=== PATIENT | female | born 1955 | race Caucasian/White ===

== ENCOUNTER 2024-07-22 12:14 | Outpatient (REF) | payer MEDICARE, OTHER, SELFPAY ==
--- NOTE | ~2024-07-22 | XR_ITS ---
CLINICAL HISTORY: M25.562 - Pain in left knee AP view of the bilateral knee and additional two views of the left knee Comparison: None Findings: Bones intact. No dislocations. Total knee replacement of the left knee. No joint effusion. No radiopaque foreign body. Mild degenerative change of the right knee. IMPRESSION: No evidence of complication of the left knee prosthesis. Mild degenerative change of the right knee. This document has been electronically signed by: Lalo Sanchez MD on 07/23/2024 13:03:47
--- OUTSIDE RECORDS SUMMARY | 2024-07-22 14:21 | XMS_ITS | Data Portability ---
Author Organization [facility], Main Office Address [address] [facility] [address] [place] [phone] Assessment No assessment recorded. Plan of Treatment Reminders Order Date Submit Date Provider Last Modified By Organization Details Last Modified Time Details Appointments NEW PT 2024 02:30P M Anuj Molina MD Not available Not available Not available Lab magnesium , serum or plasma 2024 025 [place] (Centralized Electronic Ordering - All Locations), Patient Can Go To The Location Of Their Choice, 07/08/2024 14:06:55 BMP, serum or plasma 2024 025 [place] [facility] (Centralized Electronic Ordering - All Locations), Patient Can Go To The Location Of Their Choice, 07/08/2024 14:06:53 urinalysi s, complete 2024 025 [place] [facility] (Centralized Electronic Ordering - All Locations), Patient Can Go To The Location Of Their Choice, 07/08/2024 14:06:52 microalbu min/creat inine, mass ratio, urine 2024 025 [place] [facility] (Centralized Electronic Ordering - All Locations), Patient Can Go To The Location Of Their Choice, 07/08/2024 14:06:54 osmolalit y, urine 2024 025 [place] [facility] (Centralized Electronic Ordering - All Locations), Patient Can Go To The Location Of Their Choice, 07/08/2024 14:06:56 osmolalit y, serum 2024 025 [place] [facility] (Centralized Electronic Ordering - All Locations), Patient Can Go To The Location Of Their Choice, 07/08/2024 14:06:56 unlisted lab - sodium, urine 2024 [email or web address] [facility] (Centralized Electronic Ordering - All Locations), Patient Can Go To The Location Of Their Choice, 07/06/2024 08:59:54 Referral nephrolog ist referral 2024 SANJAY Valdivia MD, [address] [facility] [address], [place], [address], 07/13/2024 14:31:51 Procedures None recorded. Surgeries None recorded. Imaging None recorded. Medication Orders hydrochlo rothiazid e 25 mg tablet 2024 [email or web address] [facility], [address], [place], [address], 07/10/2024 09:40:45 Patient TargetsNo targets recorded. Patient Instructions Encounter Date Encounter Id Patient Instructions Last Modified By Organization Details Last Modified Time 07/05/2024 [id number] Medications (OTC , herbal therapies, supplements) reviewed and reconciled with patient and or caregiver, including potential side effects, drug interactions, instructions, and the consequences of not taking medication. Reviewed potential barriers to medication adherence, such as side effects from medication or cost of medication. [email or web address] Not available 07/05/2024 15:06:23 Reason for Referral [employer] Referral for Hy ponatremia Referring Physician: Logan Cobb, Internal Medicine, Encounter Date: 07/05/2024 Results Created Date Observation Date Name Description Value Unit Range Abnormal Flag Note LastModifiedBy Organization Detail LastModifiedTime 07/06/1907/06/2024 KEIRA EN AUTHO RIZAT ION written authorizatio n Carrington López en Autho rizat ion Recei ladarius. Autho rizat ion recei ladarius from Erwin Botello for Link Reque st on 07-06 Logge d by Raphael Blanton Not Available [facility] ([facility]) [address], [place], [address], 07/13/2024 16:05:56 05/22/20 25 06/01/2024 CT, heart , w/o contr ast, w/ coron jovon calci um score No observ ation record ed. [email or web address] Beard MD [address], [place], [address], 07/08/2024 11:47:35 07/09/19 25 11/25/2023 MAMMO , scree saran, bilat eral No observ ation record ed. [email or web address] Jian Beard MD [address], [place], [address], 07/08/2024 11:43:25 07/09/19 25 08/19/2023 bone densi ty No observ ation record ed. anthony Beard MD [address], [place], [address], 07/08/2024 11:47:35 07/09/19 25 04/26/2022 metha choli ne chall enge* No observ ation record ed. ckokar Not Available 2024 11:47:20 07/09/19 25 04/26/2022 PFT, compl ete No observ ation record ed. [email or web address] Not Available 2024 11:47:35 Result Notes None recorded. Problems Name Problem SNOMED Code Status Onset Date Resolution Date Notes Provider Name and Address Organization Details Recorded Time Hyponatremia 01002807 Active 2024 Baron sims, [facility] 5 14:28:40 Mixed anxiety and depressive disorder 781058306 Active 2024 Logan Cobb PA-C [address], [place], [phone], [facility] 5 15:10:33 Essential hypertension 72015522 Active 2024 Logan Cobb PA-C [address], [place], [phone], [facility] 5 09:40:17 Problem Notes None recorded. Procedures Surgical History Date Name Laterality Status Provider Name and Address Organization Details Recorded Time 11/25/19 Most Recent Mammogram completed Nevin Talley [facility] 07/08/2024 11:43:20 operation on shoulder joint completed [facility] 07/05/2024 14:20:20 arthroplasty of knee completed [facility] 07/05/2024 14:21:10 section completed [facility] 07/05/2024 14:21:30 appendectomy completed [facility] 07/05/2024 14:21:41 release of trigger finger of right hand completed [facility] 07/05/2024 14:22:03 Imaging Results None recorded. Procedure Notes None recorded. Medical Equipment None Reported. Allergies Allergen ID Allergen Name Allergen Category Reaction Reaction Severity Criticality Documentation Date Start Date Code Code System Note Provider Name and Address Organization Details Recorded Time 40132 Product containin g penicilli n (product) medicatio n rash mild low 03/08/2024 72847 8001 SNOMED Lela Hill RN null, [facility] 13:39:27 73072 Keflex medicatio n rash mild low 03/08/2024 93797 7 RxNorm Lela Hill RN null, [facility] 13:39:47 05683 Plaquenil medicatio n rash moderate low 03/08/2024 15559 2 RxNorm Lela Hill RN null, [facility] 13:40:09 34425 Clinoril medicatio n rash mild low 03/08/2024 75881 4 RxSallyrm Lela Hill RN null, [facility] 13:40:28 81810 Bactrim medicatio n rash mild low 03/08/2024 97861 9 RxNoamalia Hill RN null, [facility] 13:40:49 66798 aspirin medicatio n rash mild low 03/08/2024 1191 RxNorm Lela Hill RN null, [facility] 13:47:12 54467 meloxicam medicatio n rash mild low 03/08/2024 23972 RxNoamalia Hill RN null, [facility] 13:47:46 87588 erythromy gianna medicatio n rash mild low 03/08/2024 4053 RxNorm Lela Hill RN null, [facility] 13:48:07 Medications Name Sig Start Date Stop Date Status Note LastModified by Organization Details LastModified Time cyclobenzap rine 10 mg tablet Take 1 tablet 3 times a day by oral route as needed for 10 days. 07/05 completed Not Available Not Available Not Available prednisone 10 mg tablet 5 tabs for 2 days, then 4 tabs for 2 days, then 3 tabs for 2 days, then 2 tabs for 2 days then 1 tab for 2 days. 07/05 completed Not Available Not Available Not Available fluconazole 150 mg tablet TAKE 1 TABLET BY MOUTH NOW. REPEAT IN 72 HOURS 07/05 completed Not Available Not Available Not Available terconazole 0.8 % vaginal cream INSERT 1 APPLICATO RFUL VAGINALLY EVERY DAY FOR 3 DAYS 07/05 completed Not Available Not Available Not Available tramadol 50 mg tablet Take 1 tablet every 8 hours by oral route as needed for 3 days. 2021 active Not Available Not Available Not Avai lable levothyroxi ne 75 mcg tablet Take 1 tablet 6 times a day by oral route. active Not Available Not Available No t Available Celebrex 100 mg capsule Take 1 capsule twice a day by oral route. active Not Available Not Available No t Available Zoloft 50 mg tablet Take 0.5 tablets every day by oral route. active Not Available Not Available No t Available meclizine 25 mg tablet Take 1 tablet 3 times a day by oral route for 30 days. 07/05 completed Not Available Not Available Not Available levothyroxi ne 50 mcg tablet Take by oral route. 07/05 completed Not Available Not Available Not Available prednisone 50 mg tablet TAKE 1 TABLET BY MOUTH DAILY 07/05 completed Not Available Not Available Not Available codeine 10 mg-guaifene sin 100 mg/5 mL oral liquid Take 10 mL every 4 hours by oral route as needed for 7 days. 07/05 completed Not Available Not Available Not Available hydrochloro thiazide 25 mg tablet Take 0.5 tablets every day by oral route. 2024 active Not Available Not Available Not Avai lable Cipro 250 mg tablet Take 1 tablet every 12 hours by oral route for 3 days. 07/05 completed Not Available Not Available Not Available lisinopril 40 mg tablet Take 1 tablet every day by oral route. active Not Available Not Available No t Available oxycodone 5 mg tablet TAKE 1 TABLET BY MOUTH EVERY 6 HOURS NEEDED FOR PAIN 07/05 completed Not Available Not Available Not Available Zetia 10 mg tablet Take 1 tablet every day by oral route. active Not Available Not Available No t Available levothyroxi ne 50 mcg capsule Take 0.5 capsules every day by oral route. 07/05 completed Not Available Not Available Not Available baclofen 5 mg tablet Take 1 tablet 3 times a day by oral route as needed for 10 days. 07/05 completed Not Available Not Available Not Available Vitals Date Recorded Body height Body mass index (BMI) Body weight Heart rate Oxygen saturation Oxygen saturation in Arterial blood by Pulse oximetry Body temperature Systolic blood pressure Diastolic blood pressure Provider Name and Address Organization Details Last Updated DateTime 154.94 cm 33.7 kg/m2 70098.1 4 g 86 /min 97 % 97 % 97.7 [degF] 132 mm[Hg] 79 mm[Hg] Pat Abreu MA [facility] 14:14:22 Social History Question Answer Notes LastModified by Organizat ion Details LastModified Time Tobacco Smoking Status Former Smoker 1979 [employer] [facility] 07/05/2024 14:30:35 What Type Of Diet Are You Following? REGULAR Information not available 07/05/2024 How Many Children Do You Have? 2 Information not available 07/05/2024 What Is Your Current Pack Years? 10packyears Information not available 07/05/2024 At What Age Did You Start Smoking Tobacco? 19 1975 Information not available 07/05/2024 How Much Tobacco Do You Smoke? 0.5 PPD Information not available 07/05/2024 How Many Years Have You Smoked Tobacco? 5 Information not available 07/05/2024 Sex: Female Functional Status Question Answer Note LastModified by Organizat ion Details LastModified Time Are you able to walk? YESWOREST Information not available 07/05/2024 What is your exercise level? Occasional Information not available 07/05/2024 Mental Status None recorded. Family History Relationship Description Onset Age of this Age Resolved Age Notes LastModified by Organization Details LastModified Time Mother Hypertensive disorder Sister , Brothe r Matern al Grandm other [email or web address] Not available 07/05/2024 11:41:15 Mother Disorder of thyroid gland Sister [email or web address] Not available 11:42:26 Mother Hypercholest erolemia Father [email or web address] Not available 11:43:24 Father Obesity 69 k[place]bym[place]one Not avail able 07/05/2024 11:44:09 Father Diabetes mellitus 69 [email or web address] Not available 11:44:37 Paternal Aunt Malignant tumor of breast [email or web address] Not available 11:45:23 Brother Bipolar disorder kcolbymontone Not available 11:45:33 Medical History No medical history recorded. Gynecological History Statement/Question Response Most Recent Mammogram 11/25/2023 Obstetrics History GPAL:G 0 P 0 0 0 0 Immunizations Vaccine Type Date Status Note Provider Nam e and Address Organization Details Recorded Time COVID-19, mRNA, LNP-S, PF, 30 mcg/0.3 mL dose 12/29/2020 completed Not Available [facility] 14:01:25 COVID-19, mRNA, LNP-S, PF, 30 mcg/0.3 mL dose 03/03/2020 completed Not Available [facility] 5 14:01:25 COVID-19, mRNA, LNP-S, PF, 30 mcg/0.3 mL dose 03/24/2020 completed Not Available [facility] 14:01:25 Past Encounters Encounter ID Performer Location Encounter Start Date Encounter Closed Date Diagnosis/Indication Diagnosis SNOMED-CT Code Diagnosis ICD10 Code Diagnosis Note [id number] Micah Maldonado MD Main Office [address] [facility] [place] [id number] 07/05/2024 13:57:30 07/05/2024 15:23:48 Hyponatremia 34802507 E87.1 ? due to HCTZ and/ or sertraline see below - rec cut hctz 25mg in 02/18 = 12.5mg qd, and cont low dose sert for now (25mg qd)Will check BMP, urine, and get renal eval to help r/o siadh last wk had nl cbc, tsh, vit d consider one handful of mixed nuts / day Hypomagnesemia 931225065 E83.42 Essential hypertension 89249380 I10 bp relatively stable, but given low sodium above - rec cut hctz 25mg in 1/2 = 12.5mg qd (see above)cont lis 40mg qd as dir Mixed anxi ety and depressive disorder 694173353 F41.9 F32.A has been on sert 25mg qd x several yrs, no tolerate coming off it entirely - so cont as dir for now Health Concerns Section Related Observation LastModified by Organization Detai ls LastModified Time None Recorded Concern Status LastModified by Organization Details LastModified Time None Recorded Advance Directives Directive None Recorded Payers Encounter Date Sequence Insurance Name Policy Number Policy Cota Covered Member ID Cota Member ID Guarantor Name 07/05/2024 2 FOR LIFE ( - MEDICARE SUPPLEMENT) Lela Hill [id number] Lela Hill 07/05/2024 1 [place]IC[place]: Service Seeking SERVICES Lela Salazar Liz [id number] Lela Hill Notes Date Note Type Note Provider Name and Address Organization Details Recorded Time 07/05/2024 text/html 68-year-old bereket acosta, new patient, presents for evaluation of hyponatremia. Reports feeling lightheaded, fatigued, and experiencing a fuzzy sensation. Most recent sodium was 129 on . She has been on HCTZ, which she stopped after reviewing lab results. Previously on spironolactone, which was discontinued in April when sodium was 130, and creatine went up. HCTZ was started at that time. Sodium has been trending downward since 07/06/23. She has a family history of SIADH (mother). History of hypothyroidism, currently on levothyroxine with recent normal TSH. CBC is normal, chloride is low, and glucose is normal. Logan Cobb PA-C [address] [address], [place], [address], [facility] 07/10/2024 09:43:32 OBGyn Episode No OBEpisode recorded.
== END 2024-07-22 12:15 | disposition home or self-care (01) ==
LOC: HO.HOSX 12:14
PROVIDERS: Visit Provider Physician Assistant
DX: M25.562 Pain in left knee (principal); Z96.652 Presence of left artificial knee joint
CPT/HCPCS: 73562; 99202

== ENCOUNTER 2024-07-22 14:50 | Outpatient (AMB) | payer MEDICARE, OTHER, SELFPAY ==
--- NOTE | 2024-07-22 15:13 | MHC.OFFVIS ---
Vital Signs 07/22/24 15:16 Height 5 ft 2 in Weight 176 lb BMI 32.2 Intake Visit Reasons: [employer]- Left knee stiffness/swelling, h/o TKA 2019 Intake Note: Lela is a 68 year old female who presents as a new patient with complaints of left knee stiffness and swelling. History of TKA in 2020 with Benny Stockton at [facility]. Patient reports having a lot of stiffness and pain. She has constant pain that is located at the medial side of knee. She is unable to bend at her knee, making it difficult for stair use. Finds relief with celebrex. No injury. Allergies aspirin Allergy (Verified 07/22/24 15:17) Rash azithromycin Allergy (Verified 07/22/24 15:20) Rash cephalexin [From Keflex] Allergy (Verified 07/22/24 15:20) Rash hydroxychloroquine [From Plaquenil] Allergy (Verified 07/22/24 15:20) Rash meloxicam Allergy (Verified 07/22/24 15:20) Rash Penicillins Allergy (Verified 07/22/24 15:20) Rash sulfamethoxazole [From Bactrim] Allergy (Verified 07/22/24 15:20) Rash sulindac [From Clinoril] Allergy (Verified 07/22/24 15:20) Rash trimethoprim [From Bactrim] Allergy (Verified 07/22/24 15:20) Rash Medication List - Last Reconciled 07/22/24 by Vicky Fam PA-C celecoxib 100 mg PO BID ezetimibe 10 mg PO DAILY hydrochlorothiazide 25 mg PO DAILY levothyroxine 75 mcg PO DAILY lisinopril 40 mg PO DAILY sertraline mg PO HPI HPI [employer]- Left knee stiffness/swelling, h/o TKA 2019: Details: 68-year-old female presents to the office today for her left knee. She had a left total knee done at [facility] back in 2019. 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 She has tried different medications which were not helpful. She had a synovectomy and also a menisectomy with Dr Arias. She seek a 2nd opinion at [facility] and that was when she decided to proceed with a left total knee arthroplasty. She states prior to her total knee arthroplasty she did have some limited range of motion however this was with extension. She does recall having full flexion. Once she had her total knee she states her range of motion was 0-130 degrees. The 1st 3 years after surgery she was doing quite well however then she noticed worsening stiffness with flexion. Currently she has intermittent swelling along the medial aspect of the knee along with difficulty with stairs or prolonged walking. She takes Celebrex daily which helps with her pain and swelling. She denies any recent injuries and denies fever or chills. [facility] Surgical History (Updated 07/22/24 @ 16:19 by Vicky Fam PA-C) History of total left knee replacement Review of Systems Const All systems reviewed & are unremarkable except as noted in HPI and below Physical Exam Vital Signs: BMI result Body Mass Index 32.2 Const General: cooperative and no acute distress Orientation/consciousness: patient oriented x3 Resp Effort & Inspection: normal respiratory effort and able to speak in complete sentences Cardio Peripheral pulses: Peripheral pulses 2+ throughout Neuro General: patient oriented x3 Extrem Other: Left knee surgical scar well healed. There is no erythema or joint effusion. Range of motion is 0-90 degrees passively and actively. She does have swelling over the pes bursa with significant tenderness to palpation. No ligamentous laxity with varus valgus stress. Anterior and posterior drawer signs are negative. Calf is supple and nontender neurovascularly intact. Results Reviewed Results Reviewed: X-rays of her left knee were obtained in the office today and reviewed by me show intact prosthesis without signs of loosening. Assessment & Plan Assessment & Plan (1) Stiffness of left knee: Code(s): M25.662 - Stiffness of left knee, not elsewhere classified Category: Medical (2) History of total knee arthroplasty: Code(s): Z96.659 - Presence of unspecified artificial knee joint Category: Surgical Plan I had a lengthy discussion with the patient about her condition and explained the prosthesis appears to be intact and there is no evidence of active infection at this time. She may just benefit from physical therapy and aggressive motion. Therapy was ordered today and she will contact a facility closer to her home to schedule an appointment. I explained to the patient over several years of stiffness the muscles and and surrounding structures can contract which could potentially be irreversible therefore I do not feel there is a surgery that will improve her flexion. She does express understanding is not looking to have another surgery. I do recommend she continue with anti-inflammatories, I did prescribe her Voltaren gel to use over the knee. She can see me back in 3 months if she continues to have symptoms otherwise follow up as needed. Orders: Orders XR knee LT 3V Today M25.562 - Pain in left knee PT Evaluation and Treatment Today M25.662 - Stiffness of left knee, not elsewhere classified Medications: New diclofenac sodium 1% apply 4grams to affected area four times a day as needed 4 grams topical QID 100 grams 6RF 30 days Coding Level of Care Code New Pt Level 3 (72923) Complex EM visit Add On G2211 Diagnoses Stiffness of left knee M25.662 History of total knee arthroplasty Z96.659
[2024-07-22 15:16] VITALS: BMI 32.2
== END 2024-07-22 15:51 | disposition home or self-care (01) ==
LOC: HO.HOS 14:50
PROVIDERS: Visit Provider Physician Assistant
DX: M25.662 Stiffness of left knee, not elsewhere classified (principal); Z96.652 Presence of left artificial knee joint
CPT/HCPCS: 99203; G2211

== ENCOUNTER → 2024-07-22 14:54 | Outpatient (BNV) | payer MEDICARE, OTHER, SELFPAY | PROVIDERS: Visit Provider Nuclear Medicine | DX: M25.562 Pain in left knee (principal) | CPT/HCPCS: 73562 ==

== ENCOUNTER 2025-02-15 13:22 | Outpatient (AMB) | payer MEDICARE, OTHER, SELFPAY ==
--- OUTSIDE RECORDS SUMMARY | 2025-02-14 23:59 | XMS_ITS | Continuity of Care Document ---
Author Organization [facility] Address [address] [place] [id number] Support Name Relationship Address Phone ESHTER URIBE Personal Relationship Unknown Unav ailable GERARD NELSON Personal Relationship Unknown Un available LESLIE, MATT Personal Relationship Unknown Unava ilable SIRARD, MATT Personal Relationship Unknown Unava ilable SIRALYSHA, MATT Personal Relationship Unknown Unava ilable SIRALYSHA, MATT Personal Relationship Unknown Unava ilable SIRARD, MATT Personal Relationship Unknown Unava ilable SYDORAK, ESTHER Personal Relationship Unknown Unav ailable PILON, TIFFANY mother Unknown Unavailable SIRARD, MATT Personal Relationship Unknown Unava ilable SIRARD, MATT Personal Relationship Unknown Unava ilable SIRARD, MATT spouse Unknown Unavailable SIRARD, MATT spouse Unknown Unavailable SIRALYSHA, MATT Personal Relationship Unknown Unava ilable PILON, TIFFANY mother Unknown Unavailable SYDORAK, ESTHER Personal Relationship Unknown Unav ailable LESLIE, MATT Personal Relationship Unknown Unava ilable SIRARD, MATT Personal Relationship Unknown Unava ilable SIRARD, MATT Personal Relationship Unknown Unava ilable SIRARD, MATT Personal Relationship Unknown Unava ilable SYDORAK, ESTHER Personal Relationship Unknown Unav ailable SIRARD, MATT Personal Relationship Unknown Unava ilable SIRARD, MATT Personal Relationship Unknown Unava ilable SYDORAK, ESTHER Personal Relationship Unknown Unav ailable SYDORAK, ESTHER Personal Relationship Unknown Unav ailable SYDORAK, ESTHER Personal Relationship Unknown Unav ailable Care Team Providers Care Associate Store Leader Name Role Phone Anuj Molina MD Primary Care Physician [phone] Encounter 02/13/25 - 02/14/[address] [address]- Attending Physician: Not on Staff, Attending MD Referring Physician: Anuj Molina MD Encounter Type: [facility] Allergies, Adverse Reactions, Alerts Substance Criticality Severity Reaction Reaction Severity Status penicillin RASH Active sulfamethoxazole GI Act nu Keflex RASH Active erythromycin base RASH Ac tive aspirin Active Plaquenil Sulfate rash Ac tive Clinoril RASH Active EC Naprosyn RASH Active meloxicam rash Active Immunizations Given and Recorded Vaccine Date Status Refusal Reason Influenza Virus Vaccine (oldterm) 1 12/05/21 Recor ded Influenza Virus Vaccine (oldterm) 2 01/18/08 Given SARS-CoV-2 (COVID-19) mRNA BNT-162b2 vac 12/29/20 Recorded SARS-CoV-2 (COVID-19) mRNA BNT-162b2 vac 03/24/20 Recorded SARS-CoV-2 (COVID-19) mRNA BNT-162b2 vac 03/03/20 Recorded influenza virus vaccine, inactivated 3 12/16/19 Gi daniel influenza virus vaccine, inactivated 11/26/17 Jhonatan rded influenza virus vaccine, inactivated 11/17/16 Jhonatan rded influenza virus vaccine, inactivated 11/01/15 Jhonatan rded influenza virus vaccine, inactivated 11/30/14 Jhonatan rded influenza virus vaccine, inactivated 11/12/14 Give n influenza virus vaccine, inactivated 01/04/14 Give n influenza virus vaccine, inactivated 4 11/17/12 Re corded influenza virus vaccine, inactivated 12/18/10 Give n influenza virus vaccine, inactivated 5 11/28/09 Gi daniel influenza virus vaccine, inactivated 6 11/21/08 Gi daniel influenza virus vaccine, inactivated 10/25/08 Give n tetanus/diphtheria/pertussis, acel(Tdap) 10/22/18 Given tetanus/diphtheria/pertussis, acel(Tdap) 7 07/09/08 Given Influenza Vaccine (oldterm) 01/23/12 Given diphtheria-tetanus toxoids (DT) 07/19/03 Given 1Result Comment: WORK 2Admin Note: SANOFI PASTEUR 3Result Comment: [facility]-[id number] 4Result Comment: [12/31/2012] Flu shot given at [facility] 11/2012 5Admin Note: [facility] 6Admin Note: Given at work 7Admin Note: [employer] employee health Medications CeleBREX 100 mg oral capsule 1 capsule = 100 mg, By Mouth, 2 times a day, PRN for pain, # 60 capsule, 2 Refills, Maintenance, 05/10/24 2:00:00 PM EDT, Capsule, [facility], Partial fill upon patient request if the prescription is for a schedule II opioid drug., 157.5, cm, 05/10/24 13:25:00 EDT, Height, 79.3, kg, 12/16/23 6:34:00 EDT, Dry Weight Start Date: 05/10/24 Status: Ordered Medication Dispense Status: Completed Quantity: 60.0 Unit: capsule Total Allowed Fills: 3 Fills Dispensed: 0 gabapentin 100 mg oral capsule 2, capsule, By Mouth, Daily at bedtime, # 60 capsule, Refills 5, Tot. Refills 5, Maintenance, 12/31/22 4:56:00 AM EST, Route to Pharmacy Electronically, [facility], 157.4, cm, 10/24/22 9:55:00 EDT, Height, 80.9, kg, 12/14/21 14:52:00 EDT, Dry Weight Start Date: 12/31/22 Status: Ordered Medication Dispense Status: Completed Quantity: 60.0 Unit: capsule Total Allowed Fills: 6 Fills Dispensed: 0 hydrochlorothiazide 25 mg oral tablet 25 mg, 1, tablet, By Mouth, Daily, D/C spironolactone, # 90 tablet, Refills 3, Tot. Refills 3, Maintenance, 05/10/24 1:49:00 PM EDT, Route to Pharmacy Electronically, [facility], Partial fill upon patient request if the prescription is for a schedule II opioid drug., 157.5, cm, 05/10/24 13:25:00 EDT, Height, 79.3, kg, 12/16/23 6:34:00 EDT, Dry Weight Start Date: 05/10/24 Status: Ordered Medication Dispense Status: Completed Quantity: 90.0 Unit: tablet Total Allowed Fills: 4 Fills Dispensed: 0 levothyroxine 75 mcg (0.075 mg) oral tablet 1 tablet = 75 mcg, By Mouth, Daily, # 90 tablet, 3 Refills, Maintenance, 05/10/24 1:51:00 PM EDT, Tablet, [facility], Partial fill upon patient request if the prescription is for a schedule II opioid drug., 157.5, cm, 05/10/24 13:25:00 EDT, Height, 79.3, kg, 12/16/23 6:34:00 EDT, Dry Weight Start Date: 05/10/24 Status: Ordered Medication Dispense Status: Completed Quantity: 90.0 Unit: tablet Total Allowed Fills: 4 Fills Dispensed: 0 lisinopril 40 mg oral tablet 1 tablet = 40 mg, By Mouth, Daily in AM, # 90 tablet, 3 Refills, Maintenance, 05/10/24 1:51:00 PM EDT, Tablet, [facility], Partial fill upon patient request if the prescription is for a schedule II opioid drug., 157.5, cm, 05/10/24 13:25:00 EDT, Height, 79.3, kg, 12/16/23 6:34:00 EDT, Dry Weight Start Date: 05/10/24 Status: Ordered Medication Dispense Status: Completed Quantity: 90.0 Unit: tablet Total Allowed Fills: 4 Fills Dispensed: 0 sertraline 50 mg oral tablet 0.5 tablet, By Mouth, Daily, # 45 tablet, 3 Refills, Maintenance, 05/10/24 1:51:00 PM EDT, [facility], 157.5, cm, 05/10/24 13:25:00 EDT, Height, 79.3, kg, 12/16/23 6:34:00 EDT, Dry Weight Start Date: 05/10/24 Status: Ordered Medication Dispense Status: Completed Quantity: 45.0 Unit: tablet Total Allowed Fills: 4 Fills Dispensed: 0 Vitamin D3 1000 intl units oral tablet, chewable 1 tablet = 25 mcg, Chew, Daily, # 50 tablet, 0 Refills, Maintenance, 07/18/23 11:59:00 AM EDT, Chew Tablet, Partial fill upon patient request if the prescription is for a schedule II opioid drug. Start Date: 07/18/23 Status: Ordered Medication Dispense Status: Completed Quantity: 50.0 Unit: tablet Total Allowed Fills: 1 Fills Dispensed: 0 Zetia 10 mg oral tablet 1 tablet = 10 mg, By Mouth, Daily, # 90 tablet, 3 Refills, Maintenance, 06/18/24 5:23:00 AM EDT, Tablet, [facility], 157.5, cm, 05/10/24 13:25:00 EDT, Height, 79.3, kg, 12/16/23 6:34:00 EDT, Dry Weight Start Date: 06/18/24 Status: Ordered Medication Dispense Status: Completed Quantity: 90.0 Unit: tablet Total Allowed Fills: 4 Fills Dispensed: 0 Problem List Condition Confirmation Course Effective Dates Status Health Status Informant Back pain Confirmed Active Depression Confirmed Active distal Fibula fracture, right ankle Confirmed 06/15/18 Active S/P total knee arthroplasty, left Confirmed Active Hypercholesterolemia Confirmed Active Hypertension 1 Confirmed Active Hypothyroidism Confirmed Active IBS - Irritable bowel syndrome Confirmed Active Obese class I Confirmed Active Obstructive sleep apnea Confirmed Active 1leg swelling on amlodipine 2.5. tolerated HCTZ. low sodium on chlorthaidone Social History Social History Type Response Tobacco Other: 5 packyear hx , quit in her 20s. Sexual Orientation Self described orien tation: ; Straight or heterosexual Sex Sex Representation Female (finding) Patient Care team information Care Team Personnel Name: Anuj Molina MD Position: Reference Physician Member Role: PCP Address: [address] [place] [address] Telecom: Care Team Related Persons Name: TIFFANY ATKINSON Name: TIFFANY ATKINSON Name: MATT NELSON Insurance Providers Guarantor name: GERARD NELSON Health Plan Information #: 1 Payer: MEDICARE B Payer Identifier: NA Member Number: [id number] Group Number: NA Subscriber Identifier: NA Relationship to Subscriber: self Coverage Type: NA Coverage Verification Date: NA Telecom: NA Address: Health Plan Information #: 2 Payer: FOR LIFE Payer Identifier: NA Member Number: [id number] Group Number: NA Subscriber Identifier: NA Relationship to Subscriber: self Coverage Type: For Life--Medicare Supplement Coverage Verification Date: NA Telecom: Address:
--- NOTE | 2025-02-15 13:24 | A.PHYSOV ---
Vital Signs 02/15/25 13:25 Height 5 ft 2 in Weight 173 lb BMI 31.6 Intake Visit Reasons: Severe onset of back pain Intake Note: Patient is a 69 year old female here today for severe onset of back pain. 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 Allergies aspirin Allergy (Verified 07/22/24 15:17) Rash azithromycin Allergy (Verified 07/22/24 15:20) Rash cephalexin (From Keflex) Allergy (Verified 07/22/24 15:20) Rash hydroxychloroquine (From Plaquenil) Allergy (Verified 07/22/24 15:20) Rash meloxicam Allergy (Verified 07/22/24 15:20) Rash Penicillins Allergy (Verified 07/22/24 15:20) Rash sulfamethoxazole (From Bactrim) Allergy (Verified 07/22/24 15:20) Rash sulindac (From Clinoril) Allergy (Verified 07/22/24 15:20) Rash trimethoprim (From Bactrim) Allergy (Verified 07/22/24 15:20) Rash HPI Comments Details: History of Present Illness The patient is a 69 year old female presenting with an exacerbation of mid-back pain that started approximately three weeks ago after lifting a heavy bag of frozen food. She experienced a twinge at the time of the incident and was significantly incapacitated the following day. Her symptoms initially included spasms, which improved with tizanidine, which she continues to take at night. She saw her primary care physician who prescribed a Medrol Dosepak, which provided some improvement. She reports currently taking tramadol for pain and has also been taking some gabapentin that she had at home. The patient has a history of this issue, and a prior MRI from 2018 demonstrated a disc bulge at T7-T8. She had another MRI recently, but the results are not yet available. She had previously seen a Dr. Quiroga for this condition, but he has since retired, and she had no further follow-up. She has a pain level today of apex/10. Patient recently had updated MRI of her thoracic spine but it is currently not available. Pain Description - Onset: Acute exacerbation of pain for the last three weeks after lifting a heavy bag. - Location: Mid-back, around the bra strap line. - Radiation: Pain radiates to the right side, around the ribs, and under the scapula. - Quality: Described as a feeling of a - heel of a construction boot pressing in the middle of my back. - Severity: Severe enough to be non-functional. - Alleviating factors: Sitting and lying down provide relief. - Exacerbating factors: Standing. Results - MRI (2018): Showed a disc bulge at T7-T8. - MRI (recent): A new MRI was performed, but results are pending. [facility] Surgical History Previous section History of total left knee replacement Social History Alcohol intake: current Alcohol intake frequency: holidays/special occasions only Patient Tobacco Use Status: Never used Tobacco Use of substances other than those prescribed or required for medical reasons: Yes Substance Use Type: Marijuana Review of Systems Narrative Review of Systems - Musculoskeletal: Reports mid-back pain that radiates to the right side, around the ribs and under the scapula. - Neurological: Reports a history of muscle spasms which have improved. Physical Exam Exam Exam: Physical Exam Examination of her thoracic spine: She is tender over the T7 spinous process. She is also tender to the right paraspinal musculature at this level as well. Her chest rises and falls symmetrically. No scapular winging. No rashes noted. Full range of motion of her lumbar spine. No calf pain or edema. Her sensation is intact to light touch. Deep tendon reflexes are symmetrical bilaterally. Vital Signs: BMI result Body Mass Index 31.6 Assessment & Plan Assessment & Plan (1) Thoracic radiculopathy: Code(s): M54.14 - Radiculopathy, thoracic region Category: Medical Plan Pain Management - Affect: The patient expresses significant distress from the pain, stating she - could not function at all and worries it will prevent her from being active during her upcoming long term travels. - Analgesia: The patient is currently taking tramadol, tizanidine at night, and has been self-medicating with gabapentin. - Adverse Effects: She denies sleepiness from gabapentin. - Activities of Daily Living: Her pain significantly limits her ability to function, particularly with standing. Plan Patient was informed and verbally consented to the use of an ambient scribe for clinic note documentation during this visit. 1. Thoracic Back Pain With Radiculopathy The patient's pain is likely secondary to a disc bulge at T7-T8, as seen on a 2018 MRI. A recent MRI has been performed, and results are pending to confirm the current pathology. A prescription for gabapentin 200 mg BID will be sent to the patient's mail-order pharmacy to help manage her symptoms. An order will be placed for a right-sided T7-T8 transforaminal epidural steroid injection, with the final level to be confirmed by the new MRI. The procedure will be performed under X-ray guidance in a hospital setting due to the risks associated with thoracic injections. The patient will proceed with physical therapy as tolerated, as referred by her primary care physician. Discussion Notes I discussed with the patient that her mid-back pain is very likely caused by the T7-T8 disc bulge seen on her previous MRI from 2018. Pending review of her new MRI we will proceed with right T7-8 transforaminal injection. I will review her new MRI for further evaluation when available. I informed her that because this is a thoracic injection, it must be performed in a hospital setting. We discussed the risks, including infection, bleeding, nerve damage, and the potential for a collapsed lung (pneumothorax). I clarified that the goal is at least a 50% reduction in pain for three to six months, and that the injection is intended to reduce inflammation, not to be a cure. I will prescribe gabapentin to help manage her pain. I also encouraged her to try physical therapy, as it is another tool available for treatment and she has not tried it for her back before. I will provide a follow-up call once the new MRI results are reviewed. Patient Instructions - Please ensure our office receives the results of your recent back MRI. - I will send a new prescription for gabapentin 200 mg to be taken twice daily. - Please speak with the desktop publishing associate to update your pharmacy to your mail-order service, [facility]. - You can start physical therapy as your pain allows. - Our office will order an epidural steroid injection for your back and will call you to schedule it once your insurance approves it. - This injection procedure will take place at the hospital. - I will call you after I review your new MRI results to discuss the findings. Orders: Referrals Physiatry Procedure Notification M54.14 - Radiculopathy, thoracic region Medications: New gabapentin 200 mg (2 x 100 mg) PO BID 120 caps 5RF 30 days M54.14 - Radiculopathy, thoracic region Coding Level of Care Code Est Pt Level 4 (79351) Diagnoses Thoracic radiculopathy M54.14
[2025-02-15 13:25] VITALS: BMI 31.6
--- OUTSIDE RECORDS SUMMARY | 2025-02-15 17:16 | XMS_ITS | Data Portability ---
Author Organization [facility], Main Office Address [address] [facility] [address] [place] [id number] Care Team Providers Care Gis Software Developer Name Role Phone ANUJ HUERTA Primary Care Provider ARACELIS BRITT Plug Assembler [facility] ORACLE SPECIALIST Mechanics Supervisor [facility] Orthopedic Surgeon [phone] Assessment Encounter Date Assessment Date Assessment LastModified by Organization Details LastModified Time 02/04/2025 02/04/2025 1. Acute Right-Sided Thoracic Back Pain / History of Disc Herniation -Persistent right thoracic pain with visible paraspinal muscle spasm and functional limitation. -No red flag symptoms: denies fever, bowel or bladder incontinence or retention, lower extremity weakness, numbness, or tingling. -Start Medrol Dosepak. -Prescribe tizanidine at bedtime for muscle spasms. -Prescribe tramadol for breakthrough pain. -Risks of sedation and lowered seizure threshold discussed, particularly in the setting of concurrent bupropion use. -Order updated MRI of the thoracic spine given prior herniation involving the thecal sac. -Refer to physical therapy. -Patient to follow up with physiatry as scheduled. 2. Hyperlipidemia / Elevated ASCVD Risk -Lipid panel remains above goal on ezetimibe monotherapy: -LDL: 156 mg/dL -Total cholesterol: 281 mg/dL -ASCVD 10-year risk score approximately 8.0%. -Coronary calcium score: 55.5 (Agatston), indicating subclinical atherosclerosis and favoring statin therapy if tolerated. -Discussed that while CAC score supports lipid-lowering therapy, LDL <70 mg/dL is not strictly mandated but may be considered depending on overall risk and shared decision-making. -Counseling on dietary modification, exercise, and weight loss. -Patient has prior statin intolerance but is open to retrial of a low-dose statin. -Plan to repeat lipid panel and liver function tests in 2 months. 3.Hypertension -Blood pressure mildly elevated today but not significantly. -Continue home blood pressure monitoring. -Continue follow-up with nephrology for medication adjustments. -Noted history of multiple antihypertensive medication intolerances. 4. Depression -Stable on bupropion monotherapy. -No current withdrawal symptoms or adverse effects. -Continue current regimen. [email or web address] Not available 02/04/2025 18:33:01 Plan of Treatment Reminders Order Date Submit Date Provider Last Modified By Organization Details Last Modified Time Details Appointments [id number] 2025 01:00P M Micah Maldonado MD Not available Not available Not available Lab lipid panel, serum 2024 026 [email or web address] [facility] (Centralized [facility] Ordering - All Locations), Patient Can Go To The Location Of Their Choice, [id number] 02/04/2025 14:54:12 aspart ate aminot ransfe rase/a lanine aminot ransfe rase, ratio, serum or plasma (OBS) 2024 026 [email or web address] [facility] ([facility]ized [facility] Ordering - All Locations), Patient Can Go To The Location Of Their Choice, [id number] 02/04/2025 14:54:12 sodium , serum or plasma 2024 025 MARCELA [facility] (Centralized [facility] Ordering - All Locations), Patient Can Go To The Location Of Their Choice, [address] 11/05/2024 15:18:32 lipid panel, serum 2024 025 MARCELA [facility], [address], [place], [address], 11/24/2024 06:09:23 CMP, serum or plasma 2024 025 MARCELA [facility] ([facility]ized [facility] Ordering - All Locations), Patient Can Go To The Location Of Their Choice, [id number] 11/24/2024 06:09:25 HbA1c (hemog lobin A1c), blood 2024 025 MARCELA [facility] ([facility] Ordering - All Locations), Patient Can Go To The Location Of Their Choice, 11/24/2024 06:09:25 vitami n D, 25-hyd cecy, total, serum 2024 025 MARCELA [facility] ([facility] Ordering - All Locations), Patient Can Go To The Location Of Their Choice, 11/24/2024 06:09:26 magnes ium, serum or plasma 2024 025 MARCELA [facility] ([facility] Ordering - All Locations), Patient Can Go To The Location Of Their Choice, 07/08/2024 14:06:55 BMP, serum or plasma 2024 025 MARCELA [facility] ([facility] Ordering - All Locations), Patient Can Go To The Location Of Their Choice, 07/08/2024 14:06:53 urinal ysis, comple te 2024 025 MARCELA [facility] ([facility] Ordering - All Locations), Patient Can Go To The Location Of Their Choice, 07/08/2024 14:06:52 microa lbumin /creat inine, mass ratio, urine 2024 025 MARCELA [facility] ([facility] Ordering - All Locations), Patient Can Go To The Location Of Their Choice, 07/08/2024 14:06:54 osmola lity, urine 2024 025 MARCELA [facility] ([facility] Ordering - All Locations), Patient Can Go To The Location Of Their Choice, 07/08/2024 14:06:56 osmola lity, serum 2024 025 MARCELA [facility] ([facility] Ordering - All Locations), Patient Can Go To The Location Of Their Choice, 07/08/2024 14:06:56 unlist ed lab - sodium , urine 2024 025 [email or web address] [facility] ([facility]ized [facility] Ordering - All Locations), Patient Can Go To The Location Of Their Choice, 07/06/2024 08:59:54 Referral physic al therap ist referr al 2024 025 [email or web address] Not available 02/04/2025 15:01:16 nephro logist referr al 2024 Marcela Valdivia MD, [address], [address], [place], [address], 07/29/2024 14:29:40 Procedures None record ed. Surgeries None record ed. Imaging MRI, thorac ic spine, w/o contra st 2024 025 arie [facility] [address], [place], [address], 02/07/2025 09:40:26 MAMMO, screen ing, bilate ral - Perfor m Diagno stic Mammog reena and Breast Ultras ound if needed / Perfor m Ultras ound Guided Aspira tion and/or Breast Biopsy if warran khris 2024 025 [facility], [address], [address], [place], [address], 11/05/2024 15:59:49 Medication Orders tramad ol 50 mg tablet 2024 [id number], [address] [place], [place], [id number], 02/04/2025 14:54:21 Medrol (Berry) 4 mg tablet s in a dose pack 2024 [facility][id number], [address] [place], [place], [id number], 02/04/2025 14:54:22 tizani dine 4 mg tablet 2024 025 [facility], [facility], [place], [address], 02/04/2025 15:43:18 tizani dine 4 mg tablet 2024 025 anthony [facility] #[id number], [address] [place], [place], [id number], 02/04/2025 17:13:28 simvas tatin 5 mg tablet 2024 025 [facility] #[id number], [address] [place], [place], [id number], 02/04/2025 14:54:20 ipratr opium bromid e 42 mcg (0.06 %) nasal spray 2024 025 [facility], [address] [place] [address], [address], 11/05/2024 15:16:45 hydroc hlorot hiazid e 25 mg tablet 2024 025 naman felipe [facility], [address] [place] [address], [place], [address], 11/10/2024 17:06:54 Patient TargetsNo targets recorded. Patient Instructions Encounter Date Encounter Id Patient Instructions Last Modified By Organization Details Last Modified Time 07/05/2024 [id number] Medications (OTC , herbal therapies, supplements) reviewed and reconciled with patient and or caregiver, including potential side effects, drug interactions, instructions, and the consequences of not taking medication. Reviewed potential barriers to medication adherence, such as side effects from medication or cost of medication. [email or web address] Not available 07/05/2024 15:06:23 11/05/2024 [id number] electrolyte imbalance: care instructions [email or web address] Not available 11/05/2024 15:18:17 hyponatremia: care instructions [email or web address] Not available 11/05/2024 15:18:17 preventing falls : care instructions [email or web address] Not available 11/05/2024 15:16:42 well visit, over 65: care instructions [email or web address] Not available 11/05/2024 15:16:42 prediabetes: car e instructions [email or web address] Not available 11/05/2024 15:16:43 rhinitis: care instructions [email or web address] Not available 11/05/2024 15:16:43 02/04/2025 [id number] high blood pressure: care instructions [email or web address] Not available 02/04/2025 18:32:23 learning about high blood pressure [email or web address] Not available 02/04/2025 18:32:23 dizziness: care instructions [email or web address] Not available 02/04/2025 14:54:12 high cholesterol : care instructions [email or web address] Not available 02/04/2025 14:54:12 Reason for Referral Special Service Officer Referral for Hy ponatremia Referring Physician: Logan Cobb, Internal Medicine, Encounter Date: 07/05/2024 Physical Therapist Referral for Acute thoracic back pain Referring Physician: Anuj Huerta, Family Medicine, Encounter Date: 02/04/2025 Results Created Date Observation Date Name Description Value Unit Range Abnormal Flag Note LastModifiedBy Organization Detail LastModifiedTime 07/06/1907/06/2024 URINA LYSIS , COMPL ETE specific gravity 1.017 1.005- 1.030 normal Not Available [facility] ([facility]) [address] [place], [address], 07/08/2024 14:06:52 07/06/19 25 07/06/2024 URINA LYSIS , COMPL ETE pH 6.0 5.0-7. 5 normal Not Available [facility] ([facility]) [address] [place], [address], 07/08/2024 14:06:52 07/06/19 25 07/06/2024 URINA LYSIS , COMPL ETE urine-color Yellow yellow Not Available [facility]) [address] [place], [address], 07/08/2024 14:06:52 07/06/19 25 07/06/2024 URINA LYSIS , COMPL ETE appearance Clear clear Not Available [facility] ([facility]) [address] [place], [address], 07/08/2024 14:06:52 07/06/19 25 07/06/2024 URINA LYSIS , COMPL ETE WBC esterase Negati ve negati ve Not Available [facility] ([facility]) [address] [place], [address], 07/08/2024 14:06:52 07/06/19 25 07/06/2024 URINA LYSIS , COMPL ETE protein Negati ve negati ve/tra ce Not Available [facility] ([facility]) [address] [place], [address], 07/08/2024 14:06:52 07/06/19 25 07/06/2024 URINA LYSIS , COMPL ETE glucose Negati ve negati ve Not Available [facility] ([facility]) [address] [place], [address], 07/08/2024 14:06:52 07/06/19 25 07/06/2024 URINA LYSIS , COMPL ETE ketones Negati ve negati ve Not Available [facility] ([facility]) [address] [place], [address], 07/08/2024 14:06:52 07/06/19 25 07/06/2024 URINA LYSIS , COMPL ETE occult blood Negati ve negati ve Not Available [facility] ([facility]) [address] [place], [address], 07/08/2024 14:06:52 07/06/19 25 07/06/2024 URINA LYSIS , COMPL ETE bilirubin Negati ve negati ve Not Available [facility] ([facility]) [address] [place], [address], 07/08/2024 14:06:52 07/06/19 25 07/06/2024 URINA LYSIS , COMPL ETE urobilinogen ,semi-qn 0.2 mg/dL 0.2-1. 0 normal Not Available [facility] ([facility]) [address] [place], [address], 07/08/2024 14:06:52 07/06/19 25 07/06/2024 URINA LYSIS , COMPL ETE nitrite, urine Negati ve negati ve Not Available [facility] ([facility]) [address] [facility], [place], [address], 07/08/2024 14:06:52 07/06/19 25 07/06/2024 URINA LYSIS , COMPL ETE microscopic examination Commen t Micro scopi c follo ws if indic ated. Not Available [facility] ([facility]) [address] [facility], [place], [address], 07/08/2024 14:06:52 07/06/19 25 07/06/2024 URINA LYSIS , COMPL ETE microscopic examination See below: Micro scopi c was indic ated and was perfo rmed. Not Available [facility] ([facility]) [address] [facility], [place], [address], 07/08/2024 14:06:52 07/06/19 25 07/06/2024 URINA LYSIS , COMPL ETE WBC 0-5 /hpf 0 - 5 Not Available [facility] ([facility]) [address] [facility], [place], [address], 07/08/2024 14:06:52 07/06/19 25 07/06/2024 URINA LYSIS , COMPL ETE RBC 0-2 /hpf 0 - 2 Not Available [facility] ([facility]) [address] [facility], [place], [address], 07/08/2024 14:06:52 07/06/19 25 07/06/2024 URINA LYSIS , COMPL ETE epithelial cells (non renal) 0-10 /hpf 0 - 10 Not Available [facility] ([facility]) [address] [place], [address], 07/08/2024 14:06:52 07/06/19 25 07/06/2024 URINA LYSIS , COMPL ETE epithelial cells (renal) LOGISTICS DIRECTOR Not Available [facility] ([facility]) [address] [facility], [place], [address], 07/08/2024 14:06:52 07/06/19 25 07/06/2024 URINA LYSIS , COMPL ETE casts None seen /lpf none seen Not Available [facility] ([facility]) [address] [facility], [place], [address], 07/08/2024 14:06:52 07/06/19 25 07/06/2024 URINA LYSIS , COMPL ETE cast type LOGISTICS DIRECTOR Not Available [facility] ([facility]) [address] [facility], [place], [address], 07/08/2024 14:06:52 07/06/19 25 07/06/2024 URINA LYSIS , COMPL ETE crystals LOGISTICS DIRECTOR Not Available [facility] ([facility]) [address] [place], [address], 07/08/2024 14:06:52 07/06/19 25 07/06/2024 URINA LYSIS , COMPL ETE crystal type LOGISTICS DIRECTOR Not Available [facility] [address] [facility], [place], [address], 07/08/2024 14:06:52 07/06/19 25 07/06/2024 URINA LYSIS , COMPL ETE mucus threads LOGISTICS DIRECTOR Not Available [facility] ([facility]) [address] [place], [address], 07/08/2024 14:06:52 07/06/19 25 07/06/2024 URINA LYSIS , COMPL ETE bacteria Few none seen/f ew Not Available [facility] ([facility]) [address] [place], [address], 07/08/2024 14:06:52 07/06/19 25 07/06/2024 URINA LYSIS , COMPL ETE yeast LOGISTICS DIRECTOR Not Available [facility] ([facility]) [address] [facility], [place], [address], 07/08/2024 14:06:52 07/06/19 25 07/06/2024 URINA LYSIS , COMPL ETE trichomonas LOGISTICS DIRECTOR Not Available [facility] ([facility]) [address] [facility], [place], [address], 07/08/2024 14:06:52 07/06/19 25 07/06/2024 URINA LYSIS , COMPL ETE comment LOGISTICS DIRECTOR Not Available [facility] ([facility]) [address] [place], [address], 07/08/2024 14:06:52 07/06/19 25 07/06/2024 BASIC METAB OLIC PANEL (8) glucose 121 mg/dL 70-99 above high normal Not Available [facility] ([facility]) [address] [place], [address], 07/08/2024 14:06:53 07/06/19 25 07/06/2024 BASIC METAB OLIC PANEL (8) BUN 17 mg/dL 8-27 normal Not Available [facility] ([facility]) [address] [place], [address], 07/08/2024 14:06:53 07/06/19 25 07/06/2024 BASIC METAB OLIC PANEL (8) creatinine 0.93 mg/dL 0.57-1 .00 normal Not Available [facility] ([facility]) [address] [place], [address], 07/08/2024 14:06:53 07/06/19 25 07/06/2024 BASIC METAB OLIC PANEL (8) eGFR 68 mL/mi n/1.7 3 >59 normal Not Available [facility] ([facility]) [address] [place], [address], 07/08/2024 14:06:53 07/06/19 25 07/06/2024 BASIC METAB OLIC PANEL (8) BUN/creatini ne ratio 18 12-28 normal Not Available [facility] ([facility]) [address] [place], [address], 07/08/2024 14:06:53 07/06/19 25 07/06/2024 BASIC METAB OLIC PANEL (8) sodium 134 mmol/ L 134-14 4 normal Not Available [facility] ([facility]) [address] [place], [address], 07/08/2024 14:06:53 07/06/19 25 07/06/2024 BASIC METAB OLIC PANEL (8) potassium 3.8 mmol/ L 3.5-5. 2 normal Not Available [facility] ([facility]) [address] [place], [address], 07/08/2024 14:06:53 07/06/19 25 07/06/2024 BASIC METAB OLIC PANEL (8) chloride 94 mmol/ L 96-106 below low normal Not Available [facility] ([facility]) [address] [place], [address], 07/08/2024 14:06:53 07/06/19 25 07/06/2024 BASIC METAB OLIC PANEL (8) carbon dioxide, total 19 mmol/ L 20-29 below low normal Not Available [facility] ([facility]) [address] [place], [address], 07/08/2024 14:06:53 07/06/19 25 07/06/2024 BASIC METAB OLIC PANEL (8) calcium 9.9 mg/dL 8.7-10 .3 normal Not Available [facility] ([facility]) [address] [place], [address], 07/08/2024 14:06:53 07/06/19 25 07/08/2024 ALBUM IN/CR EAT RATIO , RANDO M UR creatinine, urine 158.7 mg/dL not estab. normal Not Available [facility] ([facility]) [address] [place], [address], 07/08/2024 14:06:54 07/06/19 25 07/08/2024 ALBUM IN/CR EAT RATIO , RANDO M UR albumin, urine 5.6 ug/mL not estab. Not Available [facility] ([facility]) [address] [place], [address], 07/08/2024 14:06:54 07/06/19 25 07/08/2024 ALBUM IN/CR EAT RATIO , RANDO M UR alb/creat ratio 4 mg/g_ creat 0-29 Darshana l: 0 - 29 Moder ately incre ased: 30 - 300 Sever jessica incre ased: >300 Not Available [facility] ([facility]) [address] [place], [address], 07/08/2024 14:06:54 07/06/19 25 07/06/2024 MAGNE SIUM magnesium 2.1 mg/dL 1.6-2. 3 normal Not Available [facility] ([facility]) [address] [place], [address], 07/08/2024 14:06:55 07/06/19 25 07/07/2024 OSMOL ALITY osmolality 268 mosmo l/kg 280-30 1 below low normal Not Available [facility] ([facility]) [address] [place], [address], 07/08/2024 14:06:56 07/06/19 25 07/07/2024 OSMOL ALITY , URINE osmolality, urine 488 mosmo l/kg 24 hr : 300 - 900 Rando m: 50 - 1400 After 12hr fluid restr ictio n: >850 Not Available [facility] ([facility]) [address] [place], [address], 07/08/2024 14:06:56 07/06/19 25 07/13/2024 SODIU M, URINE sodium, urine 73 mmol/ L not estab. Not Available [facility] ([facility]) [address] [facility], [place], [address], 07/13/2024 16:05:55 07/06/19 25 07/06/2024 WRITT EN AUTHO RIZAT ION written authorizatio n Commen t Writt en Autho rizat ion Recei ladarius. Autho rizat ion recei ladarius from Erwin Botello for Link Reque st on 07-06 Logge d by Raphael Blanton Not Available [facility] ([facility]) [address] [facility], [place], [address], 07/13/2024 16:05:56 11/24/19 25 11/23/2024 LIPID PANEL cholesterol, total 281 mg/dL 100-19 9 above high normal Not Available [facility] ([facility]) [address] [place], [address], 11/24/2024 06:09:23 11/24/19 25 11/23/2024 LIPID PANEL triglyceride s 76 mg/dL 0-149 normal Not Available [facility] ([facility]) [address] [facility], [place], [address], 11/24/2024 06:09:23 11/24/19 25 11/23/2024 LIPID PANEL HDL cholesterol 113 mg/dL >39 normal Not Available [facility] [address] [place], [address], 11/24/2024 06:09:23 11/24/19 25 11/23/2024 LIPID PANEL VLDL cholesterol miguel angel 12 mg/dL 5-40 Not Available [facility] ([facility]) [address] [place], [address], 11/24/2024 06:09:23 11/24/19 25 11/23/2024 LIPID PANEL LDL chol calc ([facility]) 156 mg/dL 0-99 above high normal Not Available [facility] ([facility]) [address] [place] [place], [address], 11/24/2024 06:09:23 11/24/19 25 11/23/2024 LIPID PANEL LDL calc comment: LOGISTICS DIRECTOR Not Available [facility] ([facility]) [address] [place] [place], [address], 11/24/2024 06:09:23 11/24/19 25 11/23/2024 COMP. METAB OLIC PANEL (14) glucose 106 mg/dL 70-99 above high normal Not Available [facility] ([facility]) [address] [place] [place], [address], 11/24/2024 06:09:25 11/24/19 25 11/23/2024 COMP. METAB OLIC PANEL (14) BUN 12 mg/dL 8-27 normal Not Available [facility] ([facility]) [address] [place], [address], 11/24/2024 06:09:25 11/24/19 25 11/23/2024 COMP. METAB OLIC PANEL (14) creatinine 0.94 mg/dL 0.57-1 .00 normal Not Available [facility] ([facility]) [address] [place], [address], 11/24/2024 06:09:25 11/24/19 25 11/23/2024 COMP. METAB OLIC PANEL (14) eGFR 67 mL/mi n/1.7 3 >59 normal Not Available [facility] ([facility]) [address] [place], [address], 11/24/2024 06:09:25 11/24/19 25 11/23/2024 COMP. METAB OLIC PANEL (14) BUN/creatini ne ratio 13 12-28 normal Not Available [facility] [address] [place], [address], 11/24/2024 06:09:25 11/24/19 25 11/23/2024 COMP. METAB OLIC PANEL (14) sodium 131 mmol/ L 134-14 4 below low normal Not Available [facility] ([facility]) [address] [place], [address], 11/24/2024 06:09:25 11/24/19 25 11/23/2024 COMP. METAB OLIC PANEL (14) potassium 4.4 mmol/ L 3.5-5. 2 normal Not Available [facility] ([facility]) [address] [place], [address], 11/24/2024 06:09:25 11/24/1911/23/2024 COMP. METAB OLIC PANEL (14) chloride 92 mmol/ L 96-106 below low normal Not Available [facility] ([facility]) [address] [place], [address], 11/24/2024 06:09:25 11/24/19 25 11/23/2024 COMP. METAB OLIC PANEL (14) carbon dioxide, total 21 mmol/ L 20-29 normal Not Available [facility] ([facility]) [address] [place], [address], 11/24/2024 06:09:25 11/24/19 25 11/23/2024 COMP. METAB OLIC PANEL (14) calcium 9.9 mg/dL 8.7-10 .3 normal Not Available [facility] ([facility]) [address] [place], [address], 11/24/2024 06:09:25 11/24/19 25 11/23/2024 COMP. METAB OLIC PANEL (14) protein, total 7.0 g/dL 6.0-8. 5 normal Not Available [facility] ([facility]) [address] [place], [address], 11/24/2024 06:09:25 11/24/19 25 11/23/2024 COMP. METAB OLIC PANEL (14) albumin 4.5 g/dL 3.9-4. 9 normal Not Available [facility] ([facility]) [address] [place], [address], 11/24/2024 06:09:25 11/24/19 25 11/23/2024 COMP. METAB OLIC PANEL (14) globulin, total 2.5 g/dL 1.5-4. 5 Not Available [facility] ([facility]) [address] [facility], [place], [address], 11/24/2024 06:09:25 11/24/1911/23/2024 COMP. METAB OLIC PANEL (14) bilirubin, total 0.5 mg/dL 0.0-1. 2 normal Not Available [facility] ([facility]) [address] [place], [address], 11/24/2024 06:09:25 11/24/19 25 11/23/2024 COMP. METAB OLIC PANEL (14) alkaline phosphatase 83 IU/L 49-135 normal Not Available [facility] [address] [place], [address], 11/24/2024 06:09:25 11/24/19 25 11/23/2024 COMP. METAB OLIC PANEL (14) AST (SGOT) 21 IU/L 0-40 normal Not Available [facility] ([facility]) [address] [place], [address], 11/24/2024 06:09:25 11/24/19 25 11/23/2024 COMP. METAB OLIC PANEL (14) ALT (SGPT) 18 IU/L 0-32 normal Not Available [facility] ([facility]) [address] [place], [address], 11/24/2024 06:09:25 11/24/19 25 11/23/2024 HEMOG LOBIN A1C hemoglobin A1C 5.3 % 4.8-5. 6 normal Predi abete s: 5.7 - 6.4 Diabe sue: >6.4 Glyce wendy contr ol for adult s with diabe sue: <7.0 Not Available [facility] ([facility]) [address] [facility], [place], [address], 11/24/2024 06:09:25 11/24/1911/24/2024 VITAM IN D, 25-HY DROXY vitamin D, 25-hydroxy 33.1 NG/mL 30.0-1 00.0 Vitam in D defic iency has been defin ed by the Insti tute of Medic ine and an Endoc rine Socie ty pract ice guide line as a level of serum 25-OH vitam in D less than 20 ng/mL (1,2) . The Endoc rine Socie ty went on to furth er defin e vitam in D insuf ficie ncy as a level betwe en 21 and 29 ng/mL (2). 1. IOM (Inst itute of Medic ine). 2010. Dieta ry refer ence intak es for calci um and D. Weston boland [place]: [facility] Press . 2. Lo arevalo [place], [place] rose [place], Sarath off-F errar i SCRUGGS, et al. Evalu ation , treat ment, and preve ntion of vitam in D defic iency : an Endoc rine Socie ty clini miguel angel pract ice guide line. JCEM. 2010; 96(7) :1911 -30. Not Available [facility] ([facility]) [address] [facility], [place], [address], 11/24/2024 06:09:26 07/09/19 25 06/01/2024 CT, heart , w/o contr ast, w/ coron jovon calci um score No observ ation record ed. anthony Beard MD [address], [place], [address], 07/08/2024 11:47:35 07/09/1911/25/2023 MAMMO , scree saran, bilat eral No observ ation record ed. [email or web address] Jian Beard MD [address] [address], [place], [id number], 07/08/2024 11:43:25 07/09/19 25 08/19/2023 bone densi ty No observ ation record ed. ckoabbie Beard MD [address], [place], , 07/08/2024 11:47:35 07/09/19 25 04/26/2022 metha choli ne chall enge* No observ ation record ed. anthony Not Available 2024 11:47:20 07/09/19 25 04/26/2022 PFT, compl ete No observ ation record ed. ckoabbie Not Available 2024 11:47:35 09/30/19 25 10/09/2021 home sleep study No observ ation record ed. ckoabbie Not Available 2024 08:20:35 09/30/19 25 10/09/2021 apnea link (PROC ) No observ ation record ed. ckoabbie Not Available 2024 08:20:28 Result Notes None recorded. Problems Name Problem SNOMED Code Status Onset Date Resolution Date Notes Provider Name and Address Organization Details Recorded Time Hyponatremi a 43256697 Active 2024 Baron sims, [facility] 5 14:28:40 Mixed anxiety and depressive disorder 600294472 Active 2024 Logan Cobb PA-C [address], [place], [address], [facility] 5 15:10:33 Essential hypertensio n 80306246 Active 2024 Logan Cobb PA-C [address], [place], [address], [facility] 5 09:40:17 Irritable bowel syndrome with diarrhea 955488804 Active 2024 Anuj Huerta MD [address], [place], [phone], [facility] 5 14:51:20 History of herpes zoster 8206945793330 08 Active 2024 Anuj Huerta MD [address], [place], [phone], [facility] 5 15:05:15 Hyperlipide justin 46058109 Active 2024 Anuj Huerta MD [address], [place], [phone], [facility] 5 17:37:39 Problem Notes None recorded. Procedures Surgical History Date Name Laterality Status Provider Name and Address Organization Details Recorded Time 11/25/19 24 Most Recent Mammogram completed Nevin Talley [facility] 07/08/2024 11:43:20 08/19/19 24 Most Recent Bone Density completed Pat Abreu MA [facility] 11/05/2024 14:37:53 12/15/19 22 Date of Last Colonoscopy completed Pat Abreu MA [facility] 11/05/2024 14:38:13 operation on shoulder joint completed Pat Abreu MA [facility] 07/05/2024 14:20:20 arthroplasty of knee completed Pat Abreu MA [facility] 07/05/2024 14:21:10 section completed Pat Abreu MA [facility] 07/05/2024 14:21:30 appendectomy completed Pat Abreu MA [facility] 07/05/2024 14:21:41 release of trigger finger of right hand completed Pat Abreu MA [facility] 07/05/2024 14:22:03 Imaging Results None recorded. Procedure Notes None recorded. Medical Equipment None Reported. Allergies Allergen ID Allergen Name Allergen Category Reaction Reaction Severity Criticality Documentation Date Start Date Code Code System Note Provider Name and Address Organization Details Recorded Time 67274 Product containin g penicilli n (product) medicatio n rash mild low 03/08/2024 51372 8001 SNOMED Lela Hill RN null, [facility] 5 13:39:27 86468 Keflex medicatio n rash mild low 03/08/2024 72260 7 RxNorm Lela Hill RN null, [facility] 5 13:39:47 34331 Plaquenil medicatio n rash moderate low 03/08/2024 26203 2 RxNorm Lela Hill RN null, [facility] 5 13:40:09 33739 Clinoril medicatio n rash mild low 03/08/2024 27176 4 RxNorm Lela Hill RN null, [facility] 5 13:40:28 62035 Bactrim medicatio n rash mild low 03/08/2024 78719 9 RxNorm Lela Hill RN null, [facility] 5 13:40:49 40053 aspirin medicatio n rash mild low 03/08/2024 1191 RxNorm Lela Hill RN null, [facility] 5 13:47:12 47590 meloxicam medicatio n rash mild low 03/08/2024 25063 RxNorm Lela Hill RN null, [facility] 5 13:47:46 53481 erythromy gianna medicatio n rash mild low 03/08/2024 4053 RxNorm Lela Hill RN null, [facility] 5 13:48:07 00476 Repatha medicatio n other mild low 11/05/2024 61984 96 RxNorm depre ssion /rhin itis. Anuj Huerta MD [address] [facility] [address], [place], [id number] , [facility] 5 15:23:23 49218 Product containin g 3-hydroxy -3-methyl glutaryl- coenzyme A reductase inhibitor (product) medicatio n Not available Not available Not available 2024 47305 009 SNOMED Skylar SCOOTER Morillo MA [facility] 12:25:32 55447 aluminum aspirin Not available rash Not available low 01/05/20252024 611 RxNorm Not Available marcela - [employer] - prod 13:25:11 63374 cephalexi n medicatio n rash Not available low 01/05/20252024 2231 RxNorm Not Available marcela - [employer] - prod 13:25:11 67191 hydroxych loroquine medicatio n rash Not available high 01/05/20252024 5521 RxNorm Not Available [employer] - prod 13:25:11 12335 naproxen medicatio n Not available Not available Not available 01/05/20252024 7258 RxNorm Other React ion(s ): RASH Not Available [employer] - prod 13:25:11 61052 penicilli n G Not available Not available Not available Not available 01/05/20252024 7980 RxNorm Other React ion(s ): RASH Not Available [employer] - prod 13:25:11 19927 sulfameth oxazole medicatio n Not available Not available Not available 01/05/20252024 59251 RxNorm Other React ion(s ): GI Not Available [employer] - prod 13:25:11 68199 sulfameth oxazole / trimethop rim medicatio n rash Not available low 01/05/20252024 40335 RxNorm Not Available [employer] - prod 13:25:11 35986 sulindac medicatio n rash Not available low 01/05/20252024 80411 RxNorm Not Available marcela - [employer] - prod 13:25:11 Medications Name Sig Start Date Stop Date Status Note LastModified by Organization Details LastModified Time cyclobenz aprine 10 mg tablet Take 1 tablet 3 times a day by oral route as needed for 10 days. 07/05 completed Not Available Not Available Not Available bupropion HCl SR 150 mg tablet,12 hr sustained -release Take 1 tablet every day by oral route for 90 days. 2024 active Not Available Not Available Not Avai lable prednison e 10 mg tablet 5 tabs for 2 days, then 4 tabs for 2 days, then 3 tabs for 2 days, then 2 tabs for 2 days then 1 tab for 2 days. 07/05 completed Not Available Not Available Not Available carvedilo l 12.5 mg tablet Take 1 tablet twice a day by oral route. 02/03 completed from [facility] Not Available Not Available Not Available tizanidin e 4 mg tablet Take 1 tablet every day by oral route at bedtime for 30 days. 2024 active Not Available Not Available Not Avai lable fluconazo le 150 mg tablet TAKE 1 TABLET BY MOUTH NOW. REPEAT IN 72 HOURS 07/05 completed Not Available Not Available Not Available metoprolo l succinate ER 50 mg tablet,ex tended release 24 hr Take 1 tablet every day by oral route. active Not Available Not Available No t Available Medrol (Berry) 4 mg tablets in a dose pack Take by oral route per package instruct ions as tapering dose. 2024 active Not Available Not Available Not Avai lable terconazo le 0.8 % vaginal cream INSERT 1 APPLICAT ORFUL VAGINALL Y EVERY DAY FOR 3 DAYS 07/05 completed Not Available Not Available Not Available torsemide 10 mg tablet Take 1 tablet every day by oral route. 02/04 completed Not Available Not Available Not Available Zyrtec 10 mg tablet Take 1 tablet every day by oral route. active Not Available Not Available No t Available tramadol 50 mg tablet Take 1 tablet every 8 hours by oral route as needed for 5 days. 2024 active Not Available Not Available Not Avai lable levothyro xine 75 mcg tablet Take 1 tablet 6 times a day by oral route. active Not Available Not Available No t Available meloxicam 7.5 mg tablet TAKE 1 TABLET BY MOUTH DAILY WITH FOOD FOR 4 DAYS 02/03 completed Not Available Not Available Not Available Zoloft 50 mg tablet Take 0.5 tablets every day by oral route. 12/20 completed d/c per nephrolo gist due to risk of low sodium Not Available Not Available Not Available meclizine 25 mg tablet Take 1 tablet 3 times a day by oral route for 30 days. 07/05 completed Not Available Not Available Not Available simvastat in 5 mg tablet Take 1 tablet every day by oral route for 90 days. 2024 active Not Available Not Available Not Avai lable torsemide 5 mg tablet Take 2 tablets every day by oral route. active Not Available Not Available No t Available levothyro xine 50 mcg tablet Take by oral route. 07/05 completed Not Available Not Available Not Available prednison e 50 mg tablet TAKE 1 TABLET BY MOUTH DAILY 11/05 completed Not Available Not Available Not Available codeine 10 mg-guaife nesin 100 mg/5 mL oral liquid Take 10 mL every 4 hours by oral route as needed for 7 days. 07/05 completed Not Available Not Available Not Available hydrochlo rothiazid e 25 mg tablet Take 0.5 tablets every day by oral route for 90 days. 11/10 completed Not Available Not Available Not Available ipratropi um bromide 42 mcg (0.06 %) nasal spray [place] 2 sprays 3 times a day by intranas al route for 30 days. 2024 active Not Available Not Available Not Avai lable Cipro 250 mg tablet Take 1 tablet every 12 hours by oral route for 3 days. 07/05 completed Not Available Not Available Not Available celecoxib 100 mg capsule TAKE 1 CAPSULE TWICE A DAY DIRECTED FOR KNEE PAIN 2024 active Not Available Not Available Not Avai lable lisinopri l 40 mg tablet Take 1 tablet every day by oral route. active Not Available Not Available No t Available oxycodone 5 mg tablet TAKE 1 TABLET BY MOUTH EVERY 6 HOURS NEEDED FOR PAIN 07/05 completed Not Available Not Available Not Available Zetia 10 mg tablet Take 1 tablet every day by oral route. active Not Available Not Available No t Available hydrochlo rothiazid e 12.5 mg tablet Take 1 tablet every day by oral route for 90 days. 12/27 completed Not Available Not Available Not Available diclofena c 1 % topical gel APPLY 4 GRAMS TOPICALL Y TO THE AFFECTED AREA FOUR TIMES DAILY NEEDED active Not Available Not Available No t Available levothyro xine 50 mcg capsule Take 0.5 capsules every day by oral route. 07/05 completed Not Available Not Available Not Available baclofen 5 mg tablet Take 1 tablet 3 times a day by oral route as needed for 10 days. 07/05 completed Not Available Not Available Not Available Nexlizet 180 mg-10 mg tablet Take 1 tablet every day by oral route for 90 days. 02/03 completed for PA: Failed repatha and a few other statins, also has an elevated coronary calcium score, check with Lela the sx of failed repatha and which statin she tried and failed.1 02/22/24 PA not submitte d; pt wants to hold off until further discussi on with PCP Not Available Not Available Not Available Vitals Date Recorded Body height Body mass index (BMI) Body weight Heart rate Oxygen saturation Body temperature Systolic And Diastolic Provider Name and Address Organization Details Last Updated DateTime 5 154.94 cm 33.7 kg/m2 73886.1 4 g 86 /min 97 % 97.7 [degF] 132/79 mm[Hg] [facility] 5 14:14:22 Date Recorded Body height Body mass index (BMI) Body weight Heart rate Oxygen saturation Body temperature Systolic And Diastolic Provider Name and Address Organization Details Last Updated DateTime 5 154.94 cm 33.4 kg/m2 53152.8 5 g 76 /min 97 % 97.8 [degF] 133/76 mm[Hg] [facility] 5 14:44:48 Date Recorded Body height Body mass index (BMI) Body weight Heart rate Oxygen saturation Body temperature Systolic And Diastolic Systolic And Diastolic Provider Name and Address Organization Details Last Updated DateTime 154.94 cm 33.6 kg/m2 01475.4 4 g 62 /min 97 % 97.3 [degF] 148/84 mm[Hg] 152/80 mm[Hg] Madelaine Purcell [facility] 14:25:53 Social History Question Answer Notes LastModified by Organizat ion Details LastModified Time Tobacco Smoking Status Former Smoker 1979 SCOOTER Morales, [facility] 07/05/2024 14:30:35 What Type Of Diet Are You Following? REGULAR Information not available 07/05/2024 When Did You Quit Smoking? 16+yearssinc elastcigaret te Information not available 11/05/2024 How Many Children Do You Have? 2 Information not available 07/05/2024 What Is Your Current Pack Years? 10packyears Information not available 07/05/2024 At What Age Did You Start Smoking Tobacco? 19 1975 Information not available 07/05/2024 Are You Passively Exposed To Smoke? No Information not available 11/05/2024 How Much Tobacco Do You Smoke? 0.5 PPD Information not available 07/05/2024 How Many Years Have You Smoked Tobacco? 5 Information not available 07/05/2024 Sex: Female Functional Status Question Answer Note LastModified by Organizat ion Details LastModified Time Do you use any illicit or recreational drugs? Marijuana Information not available 11/05/2024 What is your level of alcohol consumption? Moderate Information not available 11/05/2024 Are you currently employed? Yes [employer] Information not available 11/05/2024 Are you able to walk independently without assistance or assistive devices? YESWOREST Information not available 07/05/2024 What is [...] kcolbymontone Not available 11:44:37 Paternal Aunt Malignant neoplasm of breast kcolbymontone Not available 11:45:23 Brother Bipolar disorder kcolbymontone Not available 11:45:33 Sister Malignant neoplasm of breast kcolbymontone Not available 14:35:37 Sister Ocular myasthenia 30 ckokar Not available 11/05 14:53:41 Maternal Aunt Parkinsonism 70 ckokar Not available 11/05/2024 14:53:16 Medical History No medical history recorded. Gynecological History Statement/Question Response Date of Last Colonoscopy 12/14/2021 Most Recent Mammogram 11/25/2023 Most Recent Bone Density 08/19/2023 Obstetrics History GPAL:G 0 P 0 0 0 0 Immunizations Vaccine Type Date Status Note Provider Nam e and Address Organization Details Recorded Time COVID-19, mRNA, LNP-S, PF, 30 mcg/0.3 mL dose 12/29/2020 completed Natacha Jarrett null, [facility] 02/03/2025 13:53:25 COVID-19, mRNA, LNP-S, PF, 30 mcg/0.3 mL dose 03/03/2020 completed Natacha Jarrett null, [facility] 02/03/2025 13:53:25 COVID-19, mRNA, LNP-S, PF, 30 mcg/0.3 mL dose 03/24/2020 [facility] 02/03/2025 13:53:25 DT (pediatric) 07/19/2003 completed Natacha Jarrett null, [facility] 02/03/2025 13:53:25 Tdap 07/09/2008 completed Natacha Jarrett null, [facility] 02/03/2025 13:53:25 Tdap 10/22/2018 completed Natacha Jarrett null, [facility] 02/03/2025 13:53:25 Influenza, split virus, trivalent, PF 12/16/2019 completed Natacha Jarrett null, [facility] 02/03/2025 13:53:25 influenza, whole 12/05/2021 completed Natacha Jarrett null, [facility] 02/03/2025 13:53:25 influenza, whole 01/18/2008 completed Natacha Jarrett null, [facility] 02/03/2025 13:53:25 influenza, whole 01/23/2012 completed Natacha Jarrett null, [facility] 02/03/2025 13:53:25 Influenza, high-dose, trivalent, PF 11/05/2024 completed Anuj Huerta MD [address], [address], [facility] 11/05/2024 14:51:35 Past Encounters Encounter ID Performer Location Encounter Start Date Encounter Closed Date Diagnosis/Indication Diagnosis SNOMED-CT Code Diagnosis ICD10 Code Diagnosis IMO Codes Diagnosis Note [id number] Micah Maldonado MD Main Office [address] [address] 07/05/2024 13:57:30 07/05/2024 15:23:48 Hyponatremia 47561363 E87.1 11048 ? due to HCTZ and/ or sertraline see below - rec cut hctz 25mg in 1/2 = 12.5mg qd, and cont low dose sert for now (25mg qd)Will check BMP, urine, and get renal eval to help r/o siadh last wk had nl cbc, tsh, vit d consider one handful of mixed nuts / day Hypomagnesemia 014240704 E83.42 9931 Essential hypertension 03711289 I10 90206 bp relatively stable, but given low sodium above - rec cut hctz 25mg in 12 = 12.5mg qd (see above)cont lis 40mg qd as dir Mixed anxi ety and depressive disorder 570643789 F41.9 F32.A 703074 has been on sert 25mg qd x several yrs, no tolerate coming off it entirely - so cont as dir for now [id number] Anuj Huerta MD Main Office [address] [facility] [address] [place] [address] 11/05/2024 14:19:15 11/05/2024 15:38:22 Adult health examination 507047445 Z00.00 Patient was counseled on healthy diet, exercise and nutrition due to Body mass index is 33.4 kg/m . Last Colonoscop y:Date: 12/14/21Re sult: wnlPlan: recall likely 10 yrs Last Mammogram: Date: 11/25/23Res ult: Bi-Rad 1Plan: Order placed for 2024 Last Pap smearDate: 03/18/24Res ult: HGSIL, HPV (+)Plan: Follows career information specialist yearly. Bone density scanDate: 08/19/23Resu lt: wnlPlan: encourage weight bearing exercise. Vaccines:T dAP: script givenZoste r: Script [id number] : script given.Infl uenza: 11/05/24Cov id: encouraged updated vaccine. Routine labs today Immunizati on status reviewed. Will screen based on risk factors. Regular dental and ophtho care advised as well as seat belt and sunscreen use. Distracted driving discussed. Medication reconciled . Screening for malignant neoplasm of breast 649862310 Z12.39 Administra tion of diphtheria, pertussis, and tetanus vaccine 970771572 Z23 Administra tion of pneumococcal vaccine 97500017 Z23 Varicella vaccination 68 991149 Z23 Influenza vaccine needed 3027840613 106 Z23 65 YEARS AND OLDER Hyperlipidemia 94627558 E78.5 Z00.00 FASTING Impaired f asting glycemia 832862785 R73.01 445379 Vitamin D deficiency 347 58981 E55.9 26307 Vasomotor rhinitis 61378 03 J30.0 79745 Hyponatremia 13280387 E8 7.1 01857 [id number] Anuj Huerta MD Main Office [address] [address] 02/04/2025 14:13:26 02/04/2025 15:01:16 Mixed anxiety and depressive disorder 992480765 F41.9 F32.A 442640 Hyperlipidemia 80904005 E78.5 54269163 Dizziness 275325022 R42 [address]. [address] acic back pain 564279468 M54.6 34274494 Essential hypertension 87002598 I10 38512 Health Concerns Section Related Observation LastModified by Organization Detai ls LastModified Time None Recorded Concern Status LastModified by Organization Details LastModified Time None Recorded Advance Directives Directive None Recorded Payers Insurance Date Sequence Insurance Name Policy Number Policy Cota Covered Member ID Cota Member ID Guarantor Name 02/04/2025 2 FOR LIFE ( - MEDICARE SUPPLEMENT) Lela Hill [id number] Lela Barrigashannon 02/04/2025 1 MEDICARE B-[place]: [employer] Lela Hill [id number] Lela Hill Notes Date Note Type Note Provider Name and Address Organization Details Recorded Time 07/05/2024 text/html 68-year-old female, new patient, presents for evaluation of hyponatremia. [...] and glucose is normal. 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 Is not using ASA. 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 ?50's Sex hx: 1 M partnerSTI: HPVDrug use: marijuana use daily.Etoh use: 2 vodka tonic/day.tobacco use: ex smoker, 0.5 pack, for 5yrs last used age 24.spf/derm: Uses spf, follows derm yearly. Dental: up to day, follows 2/yearEye: Follows yearly, up to date.Diet: Avoid milk.Activity: Walking 20min 3 days per week. Cidny sims, [facility] 11/17/2024 18:19:21 02/04/2025 text/html The patient presents today for follow-up. She was originally scheduled for evaluation of dizziness and to discuss hyperlipidemia. Her dizziness has resolved following BPPV therapy, and she is pleased with the outcome.She reports acute right-sided thoracic back pain. She was evaluated at an urgent care facility and prescribed tramadol and tizanidine, which provided partial relief. She has a known history of thoracic and lumbar disc herniation and has an upcoming appointment with a small craft operator with whom she is previously established. Despite treatment, she continues to have significant pain limiting her mobility. The pain is localized to the right thoracic region.She denies fever, lower extremity weakness, numbness or tingling, urinary retention, or bowel or bladder incontinence.She is followed by nephrology for hypertension, with ongoing medication adjustments.Regarding mental health, she was transitioned from sertraline to bupropion. She initially experienced withdrawal symptoms, which she did not report at the time, but was able to tolerate them. She is now maintained on bupropion monotherapy and reports doing well, without sexual side effects or hypersexuality, which were issues in the past.With respect to hyperlipidemia, she has a history of intolerance to multiple statins and repatha. She is currently taking ezetimibe (Zetia) monotherapy. Her most recent lipid panel remains above goal. She also has an elevated coronary calcium score. Anuj Huerta MD [address] [address], [place], [address], [facility] 02/04/2025 18:33:21 OBGyn Episode No OBEpisode recorded.
--- OUTSIDE RECORDS SUMMARY | 2025-02-15 17:17 | XMS_ITS | Continuity of Care Document ---
Author Organization [facility], Main Office Address [address] [facility] [address] [place] [address] Care Team Providers Care Event Av Operator Name Role Phone ANUJ HUERTA Primary Care Provider ARACELIS BRITT Textile Coating Machine Operator [facility] TABLEAU DEVELOPER Logging Contractor [facility] Orthopedic Surgeon [phone] Assessment Encounter Date Assessment Date Assessment LastModified [...] symptoms or adverse effects. -Continue current regimen. [email or web address] Not available 02/04/2025 18:33:01 Plan of Treatment Reminders Order Date Submit Date Provider Last Modified By Organization Details Last Modified Time Details Appointments [id number] 2025 01:00P M Micah Maldonado MD Not available Not available Not available Lab lipid panel, serum 2024 026 [facility] (Centralized Electronic Ordering - All Locations), Patient Can Go To The Location Of Their Choice, [id number] 02/04/2025 14:54:12 aspartate aminotran sferase/a lanine aminotran sferase, ratio, serum or plasma (OBS) 2024 026 [facility] (Centralized Electronic Ordering - All Locations), Patient Can Go To The Location Of Their Choice, [id number] 02/04/2025 14:54:12 Referral physical therapist referral 2024 025 Not available 02/04/2025 15:01:16 Procedures None recorded. Surgeries None recorded. Imaging MRI, thoracic spine, w/o contrast 2024 025 [email or web address] [facility] ([facility]), [address] [facility], [place], [address], 02/07/2025 09:40:26 Medication Orders tramadol 50 mg tablet 2024 025 [facility], [address], [place], [id number], 02/04/2025 14:54:21 Medrol (Berry) 4 mg tablets in a dose pack 2024 025 [facility], [address], [place], [id number], 02/04/2025 14:54:22 tizanidin e 4 mg tablet 2024 025 [facility], [address] [facility], [place], [address], 02/04/2025 15:43:18 tizanidin e 4 mg tablet 2024 025 anthony [facility] #63508, [address], [place], [id number], 02/04/2025 17:13:28 simvastat in 5 mg tablet 2024 025 [facility]99336, [address], [place], [id number], 02/04/2025 14:54:20 Patient TargetsNo targets recorded. Patient Instructions Encounter Date Encounter Id Patient Instructions Last Modified By Organization Details Last Modified Time 02/04/2025 [id number] high blood pressure: care instructions anthony Not available 02/04/2025 18:32:23 learning about high blood pressure [email or web address] Not available 02/04/2025 18:32:23 dizziness: care instructions anthony Not available 02/04/2025 14:54:12 high cholesterol : care instructions anthony Not available 02/04/2025 14:54:12 Reason for Referral Physical Therapist Referral for Acute thoracic back pain Referring Physician: Anuj Huerta, Family Medicine, Encounter Date: 02/04/2025 Problems Name Problem SNOMED Code Status Onset Date Resolution Date Notes Provider Name and Address Organization Details Recorded Time Hyponatremi a 48563662 Active 2024 Baron sims [place] - [facility] 14:28:40 Mixed anxiety and depressive disorder 066653375 Active 2024 Logan Cobb PA-C [address] [facility] [address], [place], [address], [facility] 5 15:10:33 Essential hypertensio n 04694805 Active 2024 Logan Cobb PA-C [address] [facility] [address], [place], [address], [facility] 5 09:40:17 Irritable bowel syndrome with diarrhea 627871214 Active 2024 Anuj Huerta MD [address] [facility] [address], [place], [address], [facility] 5 14:51:20 History of herpes zoster 7864156675948 08 Active 2024 Anuj Huerta MD [address] [facility] [address], [place], [address], [facility] 5 15:05:15 Hyperlipide justin 57908387 Active 2024 Anuj Huerta MD [address] [facility] [address], [place], [address], [facility] 5 17:37:39 Problem Notes None recorded. Procedures Surgical History Date Name Laterality Status Provider Name and Address Organization Details Recorded Time 11/25/19 24 Most Recent Mammogram completed Nevin Talley [facility] 07/08/2024 11:43:20 08/19/19 24 Most Recent Bone Density completed Pat Abreu MA [facility] 11/05/2024 14:37:53 12/15/19 22 Date of Last Colonoscopy completed Pat Abreu MA [facility] 11/05/2024 14:38:13 operation on shoulder joint completed Pat Abreu MA [facility] 07/05/2024 14:20:20 arthroplasty of knee completed Pat Abreu MA [facility] 07/05/2024 14:21:10 section completed Pat Abreu MA [facility] 07/05/2024 14:21:30 appendectomy completed [facility] 07/05/2024 14:21:41 release of trigger finger of right hand completed [facility] 07/05/2024 14:22:03 Imaging Results None recorded. Procedure Notes None recorded. Medical Equipment None Reported. Allergies Allergen ID Allergen Name Allergen Category Reaction Reaction Severity Criticality Documentation Date Start Date Code Code System Note Provider Name and Address Organization Details Recorded Time 06751 Product containin g penicilli n (product) medicatio n rash mild low 03/08/2024 00214 8001 SNOMED Lela Hill RN null, [facility] 13:39:27 40088 Keflex medicatio n rash mild low 03/08/2024 72107 7 RxNorm Lela Hill RN null, [facility] 13:39:47 91388 Plaquenil medicatio n rash moderate low 03/08/2024 89826 2 RxNorm Lela Hill RN null, [facility] 13:40:09 29874 Clinoril medicatio n rash mild low 03/08/2024 00788 4 RxNorm Lela Hill RN null, [facility] 13:40:28 85136 Bactrim medicatio n rash mild low 03/08/2024 45069 9 RxNorm Lela Hill RN null, [facility] 13:40:49 50547 aspirin medicatio n rash mild low 03/08/2024 1191 RxNoamalia Hill RN null, [facility] 13:47:12 84942 meloxicam medicatio n rash mild low 03/08/2024 81689 RxNoamalia Hill RN null, [facility] 13:47:46 00274 erythromy gianna medicatio n rash mild low 03/08/2024 4053 RxNorm Lela Hill RN null, [facility] 5 13:48:07 24266 Repatha medicatio n other mild low 11/05/2024 50387 96 RxNorm depre ssion /rhin itis. Anuj Huerta MD [address] [facility] [address], [place], [address], [facility] 5 15:23:23 92226 Product containin g 3-hydroxy -3-methyl glutaryl- coenzyme A reductase inhibitor (product) medicatio n Not available Not available Not available 2024 55299 009 SNOMED Skylar Eric wallis MA null, [facility] 12:25:32 13914 aluminum aspirin Not available rash Not available low 01/05/20252024 611 RxNorm Not Available marcela - [employer] - prod 13:25:11 05308 cephalexi n medicatio n rash Not available low 01/05/20252024 2231 RxNorm Not Available marcela - [employer] - prod 13:25:11 20265 hydroxych loroquine medicatio n rash Not available high 01/05/20252024 5521 RxNorm Not Available marcela - [employer] Data [employer] - prod 13:25:11 33343 naproxen medicatio n Not available Not available Not available 01/05/20252024 7258 RxNorm Other React ion(s ): RASH Not Available marcela - External Data [employer] - prod 13:25:11 05311 penicilli n G Not available Not available Not available Not available 01/05/20252024 7980 RxNorm Other React ion(s ): RASH Not Available marcela - External Data [employer] - prod 13:25:11 52462 sulfameth oxazole medicatio n Not available Not available Not available 01/05/20252024 45189 RxNorm Other React ion(s ): GI Not Available marcela - External Data [employer] - prod 13:25:11 23666 sulfameth oxazole / trimethop rim medicatio n rash Not available low 01/05/20252024 42942 RxNorm Not Available marcela - External Data [employer] - prod 13:25:11 74298 sulindac medicatio n rash Not available low 01/05/20252024 71728 RxNorm Not Available marcela - External Data Service - [facility] 13:25:11 Medications Name Sig Start Date Stop [...] day by oral route. 02/03 completed from [facility] Not Available Not Available Not Available tizanidin [...] bromide 42 mcg (0.06 %) nasal spray [place] 2 sprays 3 times a day by [...] Details Last Updated DateTime 5 154.94 cm 33.6 kg/m2 29202.4 4 g 62 /min 97 % 97.3 [degF] 148/84 mm[Hg] 152/80 mm[Hg] Madelaine Purcell [facility] 5 14:25:53 Social History Question Answer Notes LastModified by Organizat ion Details LastModified Time Tobacco Smoking Status Former Smoker 1979 Pat Abreu [facility] 07/05/2024 14:30:35 What Type Of Diet Are [...] available 11/05/2024 Are you currently employed? Yes [employer]sembl[employer]bags Information not available 11/05/2024 Are you able [...] mL dose 12/29/2020 completed Natacha Jarrett null, [facility] 02/03/2025 13:53:25 COVID-19, mRNA, LNP-S, PF, 30 mcg/0.3 mL dose 03/03/2020 completed Natacha Jarrett null, [facility] 02/03/2025 13:53:25 COVID-19, mRNA, LNP-S, PF, 30 mcg/0.3 mL dose 03/24/2020 completed Natacha Jarrett null, [facility] 02/03/2025 13:53:25 DT (pediatric) 07/19/2003 completed Natacha Jarrett null, [facility] 02/03/2025 13:53:25 Tdap 07/09/2008 completed Natacha Jarrett null, [facility] 02/03/2025 13:53:25 Tdap 10/22/2018 completed Natacha Jarrett null, [facility] 02/03/2025 13:53:25 Influenza, split virus, trivalent, PF 12/16/2019 completed Natacha Jarrett null, [facility] 02/03/2025 13:53:25 influenza, whole 12/05/2021 completed Natacha Jarrett null, [facility] 02/03/2025 13:53:25 influenza, whole 01/18/2008 completed Natacha Jarrett null, [facility] 02/03/2025 13:53:25 influenza, whole 01/23/2012 completed Natacha Jarrett null, [facility] 02/03/2025 13:53:25 Influenza, high-dose, trivalent, PF 11/05/2024 completed Anuj Huerta MD [address], [address] 11/05/2024 14:51:35 Past Encounters Encounter ID Performer Location Encounter Start Date Encounter Closed Date Diagnosis/Indication Diagnosis SNOMED-CT Code Diagnosis ICD10 Code Diagnosis IMO Codes Diagnosis Note [id number] Anuj Huerta MD Main Office [address] [address] 02/04/2025 14:13:26 02/04/2025 15:01:16 Mixed anxiety and depressive disorder 453068589 F41.9 F32.A 631622 Hyperlipidemia 42899012 E78.5 97043768 Dizziness 227689359 R42 95069 Resolved. Acute thor acic back pain 862797313 M54.6 08930966 Essential hypertension 39197025 I10 41748 Health Concerns Section Related Observation LastModified by Organization Detai ls LastModified Time None Recorded Concern Status LastModified by Organization Details LastModified Time None Recorded Payers Encounter Date Sequence Insurance Name Policy Number Policy Cota Covered Member ID Cota Member ID Guarantor Name 02/04/2025 1 [place]ICARE [place]: [employer] Lela Hill [id number] Lela Hill 02/04/2025 2 FOR LIFE ( - MEDICARE SUPPLEMENT) Lela Barrigashannon [id number] Lela Hill Notes Date Note Type Note Provider Name and Address Organization Details Recorded Time 02/04/2025 text/html The patient presents today for [...] and has an upcoming appointment with a section repairer with whom she is previously established. Despite treatment, she continues to have significant pain limiting her mobility. The pain is localized to the right thoracic region.She denies fever, lower extremity weakness, numbness or tingling, urinary retention, or bowel or bladder incontinence.She is followed by nephrology for hypertension, with ongoing medication adjustments.Regard ing mental health, she was transitioned from sertraline [...] elevated coronary calcium score. Anuj Huerta MD [address] [address], [place], [address], [facility] 02/04/2025 18:33:21 OBGyn Episode No OBEpisode recorded.
--- OUTSIDE RECORDS SUMMARY | 2025-02-15 17:17 | XMS_ITS | Encounter Summary ---
Author Organization [facility] Address [address] [place] [address] Phone Care Team Providers Care Parquetry Layer Name Role Phone Logan Cobb PA-C Primary Care Provider +1- [phone] Encounter Details Date Type Department Care Team (Late Contact Info) Description 02/11/2025 Orders Only [facility] [place] [address] [place] [address] Joshua Thomas MD [address] [place] [address] [place] [address] Hypertension Social History Tobacco Use Types Packs/Day Years Used Date Smoking Tobacco: Former Cigarettes 0.5 5 Q uit: 02/25/1979 Alcohol Use Standard Drinks/Week Comments Yes 2 (1 standard drink = 0.6 oz pur e alcohol) Comments Unknown Sex and Gender Information Value Date Recorded Sex Assigned at Female 12/06/2024 12:44 PM EDT Legal Sex Female 3:42 PM EDT Gender Identity Not on file Sexual Orientation Not on file documented as of this encounter Plan of Treatment Upcoming Encounters Date Type Department Care Team (Late Contact Info) Description 03/09/2025 1:15 PM EST Office Visit [facility] [address] [place] [address] Oral Denson MD [address] [place] [address] [place] [address] documented as of this encounter Visit Diagnoses Diagnosis Hypertension documented in this encounter Care Teams Parquetry Layer Relationship Specialty Start Date End Date Logan Cobb PA-C [address] [place] [address] [address] [place], [place] PCP - General Physician Varnish Melter Helper 09/14/24 documented as of this encounter
--- OUTSIDE RECORDS SUMMARY | 2025-02-15 17:17 | XMS_ITS | Clinical Summary ---
Author Organization [facility] ity Address [address] [place] [address] Care Team Providers Care Retirement Plan Specialist Name Role Phone Unavailable Primary Care Provider Unavailabl e Social History Tobacco Use Types Packs/Day Years Used Date Smoking Tobacco: Never Assessed Comments Unknown Sex and Gender Information Value Date Recorded Sex Assigned at Not on file Legal Sex Female 6:41 AM EST Gender Identity Not on file Sexual Orientation Not on file Plan of Treatment Health Maintenance Due Date Last Done Comments Breast Cancer Screening 1955 DTaP,Tdap,and Td Vaccines (1 - Tdap) 1976 Pneumococcal Vaccine: 50+ Ye ars (1 of 1 - PCV) 12/23/2007 Zoster Vaccines (1 of 2) 12/23/2007 Depression Screening 02/18/2024 COVID-19 Vaccine (1 - 2024-2 6 season) 2024 Influenza Vaccine (#1) 2024 RSV Immunization Adult Patie nts (1 - 1-dose 75+ series) 2032 HIB Vaccines Aged Out No longer eligi ble based on patient's age to complete this topic HPV Vaccines Aged Out No longer eligi ble based on patient's age to complete this topic Hepatitis A Vaccines Aged Out No long er eligible based on patient's age to complete this topic Hepatitis B Vaccines Aged Out No long er eligible based on patient's age to complete this topic IPV Vaccines Aged Out No longer eligi ble based on patient's age to complete this topic MMR Vaccines Aged Out No longer eligi ble based on patient's age to complete this topic Meningococcal ACWY Vaccine Aged Out N o longer eligible based on patient's age to complete this topic Meningococcal B Vaccine Aged Out No l onger eligible based on patient's age to complete this topic RSV Immunization Patients Un sarah 20 months Aged Out No longer eligible b ased on patient's age to complete this topic Varicella Vaccines Aged Out No longer eligible based on patient's age to complete this topic
--- OUTSIDE RECORDS SUMMARY | 2025-02-15 17:17 | XMS_ITS | Encounter Summary ---
Author Organization [facility] Address [address] [place] [address] Phone Care Team Providers Care Entertainer Or Variety Artist Name Role Phone Logan Cobb PA-C Primary Care Provider +1- [phone] Encounter Details Date Type Department Care Team (Late st Contact Info) Description 07/27/2024 Documentation Only [facility] [address] [place] [address] [place] [address] [place] [address] Social History Tobacco Use Types Packs/Day Years Used Date Smoking Tobacco: Never Assessed Comments Unknown Sex and Gender Information Value Date Recorded Sex Assigned at Female 12/06/2024 12:44 PM EDT Legal Sex Female 3:42 PM EDT Gender Identity Not on file Sexual Orientation Not on file documented as of this encounter Plan of Treatment Upcoming Encounters Date Type Department Care Team (Late st Contact Info) Description 03/09/2025 1:15 PM EST Office Visit [facility] [address] [place] [address] Oral Denson MD [address] [facility] [place] [address] documented as of this encounter Visit Diagnoses Not on filedocumented in this encounter Care Teams Entertainer Or Variety Artist Relationship Specialty Start Date End Date Logan Cobb PA-C [facility] [address] [place], [place] PCP - General Physician Carburetor Rebuilder 09/14/24 documented as of this encounter
--- OUTSIDE RECORDS SUMMARY | 2025-02-15 17:17 | XMS_ITS | Clinical Summary ---
Author Organization [facility], Address [address] [place] [address] [place] [address] Phone Care Team Providers Care Campaign Management Senior Manager Name Role Phone Logan Cobb PA-C Primary Care Provider [phone] Allergies Active Allergy Reactions Criticality Noted Date Comments Aspirin Rash Low 12/06/2024 Cephalexin Rash Low 12/06/2024 Erythromycin Rash Low 12/06/2024 Erythromycin Base 12/06/2024 Other Reaction(s): RASH Hydroxychloroquine Rash Medium 12/06/2024 Naproxen 12/06/2024 Other Reaction(s): RASH Penicillin G 12/06/2024 Other Reaction(s): RASH Sulfamethoxazole 12/06/2024 Other Reaction(s): GI Sulfamethoxazole-Trimethoprim Rash Low 2024 Sulindac Rash Low 12/06/2024 Medications gabapentin (NEURONTIN) 100 MG capsule Take 2 capsules by mouth 3 Active levothyroxine (SYNTHROID, LEVOTHROID) 75 MCG tablet Take 1 tablet 6 times a day by oral route. 5 Active lisinopril 40 MG tablet Take 1 tablet every day by oral route. 5 Active metoprolol succinate XL (TOPROL XL) 50 MG 24 hr tablet Take 1 tablet (50 mg total) by mouth 1 (one) time each day DO NOT CRUSH OR CHEW 90 tablet 3 5 026 Active celecoxib (CeleBREX) 100 MG capsule TAKE 1 CAPSULE TWICE A DAY DIRECTED FOR KNEE PAIN 5 Active torsemide (DEMADEX) 5 MG tablet Take 1 tablet (5 mg total) by mouth 1 (one) time each day 90 tablet 5 026 Active buPROPion XL (WELLBUTRIN XL) 150 MG 24 hr tablet Take 150 mg by mouth 1 (one) time each day Do not crush, chew, or split. Active sertraline (Zoloft) 50 MG tablet Take 25 mg by mouth 1 (one) time each day 5 025 Discontinued Active Problems Problem Noted Date Diagnosed Date Essential hypertension 07/10/2024 Hyponatremia 07/05/2024 Encounters Date Type Department Care Team Description 02/11/2025 Orders Only [facility] [address] [place] [phone] Joshua Thomas MD Hypertension 02/02/2025 1:15 PM EST Office Visit [facility] [address] [place] [address] Oral Denson MD Hypertension (Primary Dx) 01/26/2025 Orders Only [facility] [address] [place] [phone] Joshua Thomas MD Hypo-osmolality and hyponatremia (Primary Dx) 01/19/2025 Orders Only [facility] [address] [place] [phone] Joshua Thomas MD Hypertension (Primary Dx) 01/18/2025 Orders Only [facility] [address] [place] [address] Greta Landis Hyponatremia (Primary Dx) 01/05/2025 1:15 PM EST Office Visit [facility] [address] [place] [address] Oral Denson MD Hypertension (Primary Dx) 01/05/2025 Refill [facility] [address] [place] [address] Oral Denson MD 12/23/2024 Orders Only [facility] [address] [place] [address] Oral Denson MD 12/09/2024 1:30 PM EDT Office Visit [facility], [address] [place] [address] Oral Denson MD Hypo-osmolality and hyponatremia (Primary Dx) from Last 3 Months Immunizations Immunization Administration Dates Next Due DT 07/19/2003 Influenza (IM) Preservative Free 12/16/2019 Influenza Split High Dose Pr eservative Free IM 11/05/2024 Influenza Whole 12/05/2021,01/23/2012,01/18/2008 Pfizer SARS-COV-2 12/29/2020,03/24/2020,03/03/19 21 Tdap 10/22/2018,07/09/2008 Family History Medical History Relation Comments Diabetes Father Hypertension Father Autoimmune disease Mother Dementia Mother Hypertension Mother Kidney disease Mother Autoimmune disease Sister Cancer Sister Relation Status Comments Father Mother Alive Sister Alive Social History Tobacco Use Types Packs/Day Years Used Date Smoking Tobacco: Former Cigarettes 0.5 5 Q uit: 02/25/1979 Tobacco Cessation:Counseling Given: Not Answered Alcohol Use Standard Drinks/Week Comments Yes 2 (1 standard drink = 0.6 oz pur e alcohol) Comments Unknown Sex and Gender Information Value Date Recorded Sex Assigned at Female 12/06/2024 12:44 PM EDT Legal Sex Female 3:42 PM EDT Gender Identity Not on file Sexual Orientation Not on file Plan of Treatment Upcoming Encounters Date Type Department Care Team (Late st Contact Info) Description 03/09/2025 1:15 PM EST Office Visit [facility], [address] [address] Oral Denson MD [address] [place] [address] Health Maintenance Due Date Last Done Comments Breast Cancer Screening 1955 Pneumococcal Vaccine: 50+ Years (1 of 2 - PCV) 1976 Colorectal Cancer Screening: Annual FOBT 2006 Colorectal Cancer Screening: Colonoscopy 2006 Colorectal Cancer Screening: Sigmoidoscopy 2006 Influenza Vaccine Completed 11/05/2024, , 12/16/2019, Additional history exists Hepatitis B Vaccine Aged Out No longe r eligible based on patient's age to complete this topic Procedures Procedure Name Priority Date/Time Associated Diagnosis Comments BASIC METABOLIC PANEL Routine 01/28/2025 2:37 PM EST Hypo-osmolality and hyponatremia PHOSPHATE ( PHOSPHORUS) Routine 01/25/2025 12:10 PM EST Hypertension BASIC METABOLIC PANEL Routine 01/25/2025 12:10 PM EST Hypertension RENAL FUNCTION PANEL Routine 01/18/2025 10:39 AM EST Hyponatremia CBC AND DIFFERENTIAL Routine 01/04/2025 11:38 AM EST Hypo-osmolality and hyponatremia COMPREHENSIVE METABOLIC PANEL Routine 01/04/2025 11:38 AM EST Hypo-osmolality and hyponatremia from Last 3 Months Results * (ABNORMAL) Basic metabolic panel (01/28/2025 2:37 PM EST) Only the most recent of2 resultswithin the time period is included. Glucose 100(H) 70 - 99 mg/dL [facility] [place] BUN 23 8 - 27 mg/dL [facility] [place] Creatinine 1.17(H) 0.57 - 1.00 mg/dL [facility] [place] eGFR CKD-EPI CR 2020 51(L) >59 mL/min/1.7 3 [facility] [place] BUN/Creatinine Ratio 20 12 - 28 [facility] [place] Sodium 134 134 - 144 mmol/L [facility] [place] Potassium 4.6 3.5 - 5.2 mmol/L [facility] [place] Chloride 96 96 - 106 mmol/L [facility] [place] Bicarbonate (CO2) 28 20 - 29 mmol/L [facility] [place] Calcium 9.8 8.7 - 10.3 mg/dL [facility] [place] Blood Venous blood / Unknown 01/28/2025 2:37 PM EST 01/28/2025 Joshua Thomas MD LAB BLOOD ORDERABLES Final Re sult [facility] [place] [address], [address] [place] [phone] * Phosphorus (01/25/2025 12:10 PM EST) Phosphorus 3.6 3.0 - 4.3 mg/dL [facility] [place] Blood Venous blood / Unknown 01/25/2025 12:10 PM EST 01/25/2025 Joshua Thomas MD LAB BLOOD ORDERABLES Final Re sult [facility] [place] [address], [address] [place] [phone] * (ABNORMAL) Renal function panel (01/18/2025 10:39 AM EST) Sodium 138 134 - 144 mmol/L [facility] [place] Chloride 99 96 - 106 mmol/L [facility] [place] Bicarbonate (CO2) 27 20 - 29 mmol/L [facility] [place] Calcium 9.9 8.7 - 10.3 mg/dL [facility] [place] Albumin 4.5 3.9 - 4.9 g/dL [facility] [place] Glucose 88 70 - 99 mg/dL [facility] [place] BUN 25 8 - 27 mg/dL [facility] [place] Creatinine 1.16(H) 0.57 - 1.00 mg/dL [facility] [place] eGFR CKD-EPI CR 2020 52(L) >59 mL/min/1.7 3 [facility] [place] BUN/Creatinine Ratio 22 12 - 28 [facility] [place] Potassium 4.3 3.5 - 5.2 mmol/L [facility] [place] Phosphorus 4.5(H) 3.0 - 4.3 mg/dL [facility] [place] Blood Venous blood / Unknown 01/18/2025 10:39 AM EST 01/18/2025 us Joshua Thomas MD LAB BLOOD ORDERABLES Final Re sult [facility] [place] [address], [address] [place] [address] * CBC and differential (01/04/2025 11:38 AM EST) WBC 7.5 3.4 - 10.8 x10E3/uL [facility] RBC 4.43 3.77 - 5.28 x10E6/uL [facility] Hemoglobin 14.4 11.1 - 15.9 g/dL [facility] Hematocrit 42.3 34.0 - 46.6 % [facility] MCV 96 79 - 97 fL [facility] MCH 32.5 26.6 - 33.0 pg [facility] MCHC 34.0 31.5 - 35.7 g/dL [facility] RDW 13.9 11.7 - 15.4 % [facility] Platelets 361 150 - 450 x10E3/uL [facility] Neutrophils Relative 59 Not Estab. % [facility] Lymphocytes Relative 27 Not Estab. % [facility] Monocytes 11 Not Estab. % [facility] Eosinophils Relative 2 Not Estab. % [facility] Basophils Relative 1 Not Estab. % [facility] Neutrophils Absolute 4.4 1.4 - 7.0 x10E3/uL [facility] Lymphocytes Absolute 2.0 0.7 - 3.1 x10E3/uL [facility] Monocytes Absolute 0.9 0.1 - 0.9 x10E3/uL [facility] Eosinophils Absolute 0.2 0.0 - 0.4 x10E3/uL [facility] Basophils Absolute 0.1 0.0 - 0.2 x10E3/uL [facility] Immature Granulocytes 0 Not Estab. % [facility] Immature Grans (Absolute) 0.0 0.0 - 0.1 x10E3/uL [facility] Blood Venous blood / Unknown 01/04/2025 11:38 AM EST 01/04/2025 us Oral Denson MD LAB BLOOD ORDERABLES Final Res ult [facility] [address] [place] [address] * (ABNORMAL) Comprehensive metabolic panel (01/04/2025 11:38 AM EST) Pathologist [facility] Bicarbonate (CO2) 24 20 - 29 mmol/L [facility] [place] Glucose 112(H) 70 - 99 mg/dL [facility] [place] BUN 23 8 - 27 mg/dL [facility] [place] Creatinine 0.99 0.57 - 1.00 mg/dL [facility] [place] eGFR CKD-EPI CR 2020 62 >59 mL/min/1.7 3 [facility] [place] BUN/Creatinine Ratio 23 12 - 28 [facility] [place] Sodium 138 134 - 144 mmol/L [facility] Potassium 4.4 3.5 - 5.2 mmol/L [facility] [place] Chloride 101 96 - 106 mmol/L [facility] [place] Calcium 9.8 8.7 - 10.3 mg/dL [facility] [place] Total Protein 7.1 6.0 - 8.5 g/dL [facility] [place] Albumin 4.5 3.9 - 4.9 g/dL [facility] [place] Globulin 2.6 1.5 - 4.5 g/dL [facility] Total Bilirubin 0.6 0.0 - 1.2 mg/dL [facility] [place] Alkaline Phosphatase 82 49 - 135 IU/L [facility] [place] AST (SGOT) 20 0 - 40 IU/L [facility] ALT (SGPT) 19 0 - 32 IU/L [facility] [place] Blood Venous blood / Unknown 01/04/2025 11:38 AM EST 01/04/2025 us Oral Denson MD LAB BLOOD ORDERABLES Final Res ult [facility] [address], [address] [place] [phone] from Last 3 Months Insurance Medicare [facility] Care Teams Campaign Management Senior Manager Relationship Specialty Start Date End Date Logan Cobb PA-C [id number] [facility] [address] [place], [place] PCP - General Physician Steam Setter 09/14/24
== END 2025-02-15 13:49 | disposition home or self-care (01) ==
LOC: HO.HPHYS 13:23
PROVIDERS: Visit Provider Physician Assistant
DX: M54.14 Radiculopathy, thoracic region (principal)
CPT/HCPCS: 99214

== ENCOUNTER → 2025-02-15 13:22 | Outpatient (BNVA) | payer MEDICARE, OTHER, SELFPAY | PROVIDERS: Visit Provider Physician Assistant | DX: M54.14 Radiculopathy, thoracic region (principal) | CPT/HCPCS: 99212 ==